=== PATIENT | female | born 1950 | race African-American/Black ===

== ENCOUNTER 2025-03-06 10:27 | Outpatient (CLI) | payer MEDICARE, SELFPAY ==
--- NOTE | ~2025-03-06 | PE_ITS ---
EXAMINATION: PET skull to mid thigh DATE: 03/06/2025 12:37 INDICATION: Solitary pulmonary nodule TECHNIQUE: Blood glucose level was 117 mg/dL. 10.85 mCi of 18-fluorodeoxyglucose (18-FDG) was adminis tered i.v. Low dose computed tomography (CT) images were acquired from the base of the brain to the p roximal thighs for attenuation correction and anatomic localization. Positron emission tomography (PE T) images were acquired in the same distribution beginning 54 minutes after injection. Images includi ng fused PET/CT images were reconstructed in axial, coronal, and sagittal planes. Automated exposure control technique was employed. The dose-length product was 897.16mGy-cm. COMPARISON: PET/CT dated 02/24/2016 FINDINGS: Head/neck: There is symmetric increased activity in the oral cavity, palatine tonsils, laryngeal muscles and ocu lar muscles without CT correlate, likely physiologic. 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 No pathologically enlarged cervical lymphadenop athy or suspicious foci of increased FDG uptake in the visualized head or neck. Chest: Mild emphysema. No evident FDG uptake associated with a 7 mm nodule at the lateral basilar segment of the right lower lobe which was present at the time of the prior study at which time it measured appr oximately 6 mm. Both the absence of FDG uptake and the lack of significant change director nearly 10 year s would be most consistent with a benign noncalcified granuloma. This along with the minimal 2 mm denia cified nodule at the inferior left lower lobe along with calcified mediastinal lymph nodes consistent with old granulomatous disease. No other suspicious pulmonary nodules, pneumonia, pulmonary edema or pleural effusion. Heart size normal. Atherosclerotic coronary artery calcific lesion. No pericardial effusion. Thoracic aorta is normal in caliber. There is additional synovial uptake at the bilateral glenohumeral joints. There is mild likely physiologic muscular uptake extending craniocaudally along the lower thoracic right paraspinal musculature and along some of the posterior lower thoracic interc ostal muscles without radiologic correlate. Severe lower thoracic spondylosis. Abdomen/pelvis/proximal thighs: Physiologic renal accumulation and excretion of FDG activity in the kidneys, bladder and along portio ns of ureters. Interval increase in size of a now 1.2 cm macroscopic fat attenuation angiomyolipomas at the lower pole of the left kidney. Normal degree and heterogenous pattern of increased uptake thro ughout the liver without radiologic correlate or dominant FDG avid lesion. The gallbladder, pancreas and spleen are normal. There are several bilateral adrenal nodules with mild associated FDG activity, 2 on the right including the largest which measures 1.9 cm with maximal SUV of 3.5 and low density d iagnostic of an adenoma and 4 nodules in the left adrenal gland, the largest measuring 1.6 cm with ma ximal SUV of 4.0. Aside from the largest right adrenal nodule, the remainder remain indeterminate by CT density but which are without significant interval change since the prior study from [address] consistent with adenomas. Mild uptake scattered throughout the bowels without radiologic correlate , also likely physiologic. There is severe lower lumbar spondylosis with increased likely synovial FD G uptake associated with severe facet osteoarthritis on the right at L4-L5. No other abnormal foci of increased FDG uptake or pathologically enlarged lymphadenopathy in the abdomen, pelvis or proximal t highs. Musculoskeletal: Additional likely physiologic muscular activity at the bilateral hands. No interval change in a likel y benign sclerotic lesion at the left side of the T12 vertebral body which is without abnormal FDG up take, most likely bone island. No other suspicious lytic, blastic or FDG avid bone lesions. IMPRESSION: 1. No significant change in size and no evident FDG uptake associated with a 7 mm right lower lobe no dule most consistent with a benign noncalcified granuloma. 2. Multiple bilateral mildly FDG avid adrenal nodules, the largest on the right with attenuation diag nostic of an adenoma and remainder without significant interval change since the prior study from 9 y ears prior also most consistent with adenomas. 3. 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 Reviewed, dictated and finalized at location A. IMPRESSION: 1. No significant change in size and no evident FDG uptake associated with a 7 mm right lower lobe nodule most consistent with a benign noncalcified granuloma . 2. Multiple bilateral mildly FDG avid adrenal nodules, the largest on the right with attenuation diagnostic of an adenoma and remainder without significant in terval change since the prior study from 9 years prior also most consistent wit h adenomas. 3. 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
--- OUTSIDE RECORDS SUMMARY | 2025-03-06 10:32 | XMS_ITS | Referral Summary ---
Author Organization [facility] Physician Office Building [address] [place] [id number] Care Team Providers Care Perinatal Coordinator Name Role Phone Rommel Sunshine MD Primary Care Provider Encounters Date Type Department Care Team Description 02/17/2025 Orders Only [facility] Diabetes and Endocrinology [address] [place] [phone] Shane Givens MD 02/12/2025 Telephone [facility] Medical [facility] Diabetes and Endocrinology [address] [place] [phone] Chloe Juan, MEDICAL AIDES TEACHER Med Management 01/14/2025 Orders Only [facility] Diabetes and Endocrinology [address] [place] [phone] Shane Givens MD 01/07/2025 Telephone [facility] Specialists [address] [phone] Chloe Juan, MEDICAL AIDES TEACHER Med Management 12/06/2024 Results Follow-Up [facility] Medical [facility] Diabetes and Endocrinology [address] [place] [phone] Chloe Juan, MEDICAL AIDES TEACHER Albumin Creatinine Ratio, Urine from Last 3 Months Allergies Active Allergy Reactions Criticality Noted Date Comments Azithromycin Unknown High 02/19/2014 Medications albuterol HFA (PROVENTIL HFA,VENTOLIN HFA,PROAIR HFA) 90 mcg/actuation inhaler INHALE 1 PUFF BY MOUTH EVERY 4 HOURS NEEDED 3 Active amLODIPine (NORVASC) 10 mg tablet Take 1 tablet (10 mg total) by mouth daily 3 Active cloNIDine (CATAPRES) 0.1 mg tablet Take 1 tablet (0.1 mg total) by mouth nightly 3 Active Banophen 25 mg capsule TAKE 1 CAPSULE BY MOUTH AT BEDTIME NEEDED 4 Active losartan (COZAAR) 100 mg tablet Take 1 tablet (100 mg total) by mouth daily 3 Active meloxicam (MOBIC) 15 mg tablet Take 1 tablet (15 mg total) by mouth daily as needed 4 Active mometasone (ELOCON) 0.1 % cream APPLY THIN LAYER TOPICALLY TO THE AFFECTED AREA EVERY DAY [address] (PROTONIX) 40 mg EC tablet Take 1 tablet (40 mg total) by mouth daily 3 Active potassium chloride ER 20 mEq CR tablet Take by mouth daily 4 Active simvastatin (ZOCOR) 20 mg tablet Take 1 tablet (20 mg total) by mouth daily 4 Active fluticasone propionate (FLONASE) 50 mcg/actuation nasal spray Administer into each nostril daily Active aspirin 81 mg enteric coated tablet TAKE 1 TABLET BY MOUTH EVERY DAY DIRECTED FOR 30 DAYS FOR CV PROTECTION 4 Active ergocalciferol (VITAMIN D) 50,000 unit capsule TAKE 1 CAPSULE BY MOUTH WEEKLY 4 Active dulaglutide (TRULICITY) 1.5 mg/0.5 mL pen injectorIndicat ions:Type 2 diabetes mellitus with hyperglycemia, without long-term current use of insulin (HCC) Inject 0.5 mL (1.5 mg total) under the skin once a week 6 mL 3 5 Active Additional Information Patient not taking.Reported on 12/04/2024 OneTouch Ultra Test strip 2 (two) times a day 5 Active celecoxib (CeleBREX) 200 mg capsule Take by mouth daily 5 Active chlorthalidone (HYGROTON) 25 mg tablet Take 1 tablet (25 mg total) by mouth daily Active empagliflozin (JARDIANCE) 10 mg tablet Jardiance 10 mg tablet Active famotidine (PEPCID) 20 mg tablet famotidine 20 mg tablet 1 Active ipratropium (ATROVENT) 42 mcg (0.06 %) nasal spray Administer 2 sprays into each nostril 2 (two) times a day 5 Active LORazepam (ATIVAN) 1 mg tablet lorazepam 1 mg tablet TAKE 1 TABLET BY MOUTH 1 TO 2 HOURS PRIOR TO MRI Active omeprazole (PriLOSEC) 40 mg capsule omeprazole 40 mg capsule,delayed release Active metFORMIN (GLUCOPHAGE) 1,000 mg tabletIndicatio ns:Type 2 diabetes mellitus with hyperglycemia, without long-term current use of insulin (HCC) Take 1 tablet by mouth twice a day with meals 60 tablet 11 5 Active glimepiride (AMARYL) 2 mg tabletIndicatio ns:Type 2 diabetes mellitus with hyperglycemia, without long-term current use of insulin (HCC) TAKE 1 TABLET(2 MG) BY MOUTH TWICE DAILY 60 tablet 3 5 Active Active Problems Problem Noted Date Diagnosed Date Hyperlipidemia associated with type 2 diabetes eugenio arias 07/17/2024 Assessment & Plan (12/04/2024 11:51 AM CDT): Chronic problem. At goal on current Simvastatin 20mg. Last lipid panel: 05/23/24 LDL=58, TG=72. Assessment & Plan (07/24/2024 12:57 PM DRY PAN FEEDER): Chronic problem. On statin therapy, no changes. Type 2 diabetes mellitus wit h hyperglycemia, without long-term current use of insulin 09/20/2023 Assessment & Plan (12/04/2024 12:10 PM CDT): Chronic problem. A1c greatly worsened as she was having difficulty getting medications d/t cost/insurance. A1c sofia from 7.3% 05/23/24 to now 9.2%. Has been missing doses d/t cost/insurance. Has not had trulicity 07/2024. Has been taking Glimepiride 2mg BID since she's been out of Trulicity. Aware that she is to restart Trulicity once she gets it. May be able to drop the Glimepiride pending blood sugar levels. Current medications: Metformin 1000 mg twice daily with meals -often only takes once a day due to fear of hypoglycemia Glimepiride 2 mg twice daily with meals Trulicity 1.5 mg weekly UTD on DM eye exam (12/08/23 no DMR [facility]). Will update MA/Cr. Does not mychart. Verified phone #/address to contact re: results. Discussed with Niesha Wittond: Strive for regular exercise (30min most days) and diet (get at least 4-5 servings of fruit and veggies daily, avoid processed foods, increase lean protein intake and decrease carb portions as well as fruit juices, regular soda & desserts). Watch carbs and simple sugars. Check the blood sugar: 2-3x/week. Check the feet daily for skin breakdown and infection. Assessment & Plan (07/24/2024 12:58 PM DRY PAN FEEDER): Chronic problem, not at goal with hypoglycemia. This is coming from glimepiride, she eats very light in the day and gets lows in afternoon. Recommend for 2 weeks she only take Trulicity and metformin twice daily. If sugars are reasonable she can stay off glipizide. If aC readings rising >150, then add back 1/2 tab glimepiride with her main meal. She had yeast infections with SGLT2i and does not want to increase Trulicity at this time. Let us know if any issues. Assessment & Plan (09/20/2023 1:21 PM DRY PAN FEEDER): Hba1c was Lab Results Component Value Date HGBA1C 6.6 09/20/2023 today, indicating adequate DM control with risk of hypoglycemia Goal Hba1c under 7 and blood glucose level in the 120-160 range was explained Low carb diet and daily aerobic and /or resistant exercise were advised Prevention and treatment of hyypoglcyemia were discussed with the patient Blood glucose monitoring : 1 or twice a day Adjustment to medications: Continue Trulicity 1.5 mg weekly Metformin a 1000 mg twice a day with meals Glimepiride 2 mg daily Hypertension associated with diabetes 09/20/2023 Assessment & Plan (12/04/2024 11:51 AM CDT): Chronic problem. Controlled on current losartan 100mg daily, clonidine 0.1mg nightly, amlodipine 10mg daily Assessment & Plan (07/24/2024 12:57 PM DRY PAN FEEDER): Chronic problem, Controlled on losartan, amlodipine, clonidine. No changes. Assessment & Plan (09/20/2023 1:22 PM DRY PAN FEEDER): Chronic well-controlled Continue losartan Update GFR and microalbumin Social History Tobacco Use Types Packs/Day Years Used Date Smoking Tobacco: Former Cigarettes Comments Unknown Sex and Gender Information Value Date Recorded Sex Assigned at Not on file Legal Sex Female 4:27 PM CDT Gender Identity Not on file Sexual Orientation Not on file Last Filed Vital Signs Vital Sign Reading Time Taken Comments Blood Pressure 110/76 12/04/2024 11:35 AM CDT Pulse 90 12/04/2024 11:35 AM CDT Temperature - - Respiratory Rate 16 12/04/2024 11:35 AM CDT Oxygen Saturation - - Inhaled Oxygen Concentration - - Weight 71.2 kg (157 lb) 12/04/2024 11:35 AM CDT Height 156.2 cm (5' 1.5) 12/04/2024 11:35 AM CD T Body Mass Index 29.19 12/04/2024 11:35 AM CDT Plan of Treatment Not on file Procedures Procedure Name Priority Date/Time Associated Diagnosis Comments DIABETES EYE EXAM Routine 02/07/2025 9:43 AM CDT DIABETES EYE EXAM Routine 12/07/2024 8:53 AM CDT ALBUMIN CREATININE RATIO, URINE Routine 12/04/2024 12:18 PM CDT Type 2 diabetes mellitus with hyperglycemia, without long-term current use of insulin (HCC) POCT HEMOGLOBIN A1C Routine 12/04/2024 1 1:39 AM CDT Type 2 diabetes mellitus with hyperglycemia, without long-term current use of insulin (HCC) LIPID PANEL Routine 05/23/2024 11:10 AM CDT from Last 3 Months or Most Recently Relevant to Health Maintenance Results * DIABETES EYE EXAM (02/07/2025 9:43 AM CDT) us Historical Provider HEALTH MAINTENANCE Final Result * HM DIABETES EYE EXAM (12/07/2024 8:53 AM CDT) Result [facility] Historical Provider HEALTH [facility] Edited Result - Final * Albumin Creatinine Ratio, Urine (12/04/2024 12:18 PM CDT) Albumin Ur <12.0 mg/L Comment: Interpretive Data No reference range established. Current interpretive data was last revised 2018. Creatinine Ur 27.9 mg/dL [facility] Comment: Interpretive Data No reference range established. Current interpretive data was last revised 2018. Albumin Creatinine Ratio, Ur See Comment 1 - 29 [facility] Comment:Unable to calculate Urine 12/04/2024 12:1 8 PM CDT 12/04/2024 8:50 PM CDT Result [facility] Chloe Juan NP LAB URINE ORDERABLES Sujey l Result [facility]RA[facility] [id number] [address] Department of Laboratories [place] [phone] * (ABNORMAL) POCT hemoglobin A1c (12/04/2024 11:39 AM CDT) Pathologist [facility] Hemoglobin A1C, POC 9.2 4.0 - 5.6 % Blood 12/04/2024 11:3 9 AM CDT Result [facility] Chloe Juan NP POINT OF CARE TEST ORDERA BLES Final Result * Lipid panel (05/23/2024 11:10 AM CDT) SCRIBED Cholesterol, Total 120 100 - 199 [facility] SCRIBED HDL 47 >39 - NA [facility] SCRIBED LDL 58 0 - 99 [facility] SCRIBED Triglycerides 72 0 - 149 [facility] Blood 05/23/2024 11:1 0 AM CDT us Historical Provider LAB BLOOD ORDERABLES Edit ed Result - Final [facility] from Last 3 Months or Most Recently Relevant to Health Maintenance Insurance MEDICARE [facility] Care Teams Perinatal Coordinator Relationship Specialty Start Date End Date Rommel Sunshine MD [address] [place] [id number] PCP - General Internal Medicine 06/13/23
--- OUTSIDE RECORDS SUMMARY | 2025-03-06 10:32 | XMS_ITS | Data Portability ---
Author Organization [facility] Address [address] [place] [address] Care Team Providers Care Resistance Welder Name Role Phone PENG POWELL Orthopedic Surgeon SHERITA JOHNSON Baking Factory Worker ERASMO PIERRE Tar Kettle Runner AJAY HI Picker And Packer ROMMEL BAPTISTE Primary Care Provider DOTTIE BUSTAMANTE Head Loft Worker Assessment Encounter Date Assessment Date Assessment LastModified by Organization Details LastModified Time 07/31/2024 07/31/2024 The etiology of her discomfort could be related to her sinus issues oajao Not available 07/31/2024 13:13:55 Plan of Treatment Reminders Order Date Submit Date Provider Last Modified By Organization Details Last Modified Time Details Appointments ANY 15 2024 02:00P M Rommel Baptiste MD Not available Not available Not available Lab AST/SGO T (aspart ate aminotr ansfera se), serum or plasma 2024 025 BRAIN [facility], [facility] [facility], [address], [place], [address], 02/05/2025 07:13:28 ALT (alanin e aminotr ansfera se), serum or plasma 2024 025 BRAIN [facility], [address], [place], [address], 02/05/2025 07:13:29 basic metabol ic 1998 panel, serum or plasma 2024 025 BRAIN [facility], [address], [address], [place], [address], 01/14/2025 11:12:24 hemoglo bin + hematoc rit, blood 2024 025 BRAIN [facility], [address], [address], [place], [address], 01/14/2025 11:12:26 HbA1c (hemogl obin A1c), blood 2024 025 BRAIN [facility], [address], [address], [place], [address], 01/14/2025 11:12:25 lipid panel, serum 2024 025 BRAIN [facility], [address], [address], [place], [address], 01/14/2025 11:12:23 albumin /creati nine, mass ratio, urine 2024 025 BRAIN [facility], [address], [place], [address], 01/14/2025 11:12:22 TSH, ultra-s ensitiv e, serum 2023 024 BRAIN [facility], [address], [place], [address], 06/18/2024 13:14:37 vitamin B12, serum 2023 024 BRAIN [facility], [address], [address], [place], [address], 06/18/2024 13:14:36 hemoglo bin + hematoc rit, blood 2023 024 ZIRCONIA [facility], [address] [facility], [address], [place], [address], 06/18/2024 13:14:38 vaginal pathoge ns panel, KAYLENE+pro be, vaginal fluid 2023 024 ZIRCONIA [facility], [address] [facility], [address], [place], [address], 02/21/2024 08:24:11 urinaly sis, dipstic k 2023 024 [email or web address] In-Office Order, Internal Use Only DO Not Attach Compendium DO Not Attach Compendium, Do Not Delete/merge, [id number] 02/19/2024 16:37:34 culture , urine 2023 [facility]24 [facility], [address] [place] [address], [address], [place], [address], 03/27/2024 15:37:24 Referral gastroe nterolo gist referra l 2024 025 hussein Hendricks MD, [address], [place], [address], 02/19/2025 14:01:07 podiatr ist referra l 2024 025 dmitri Cruz DPM, [address], [address], [place], [address], 02/26/2025 09:17:41 diabeti c ophthal mology referra l 2024 025 BRAIN [facility], [address], [place], [address], 02/10/2025 09:24:13 orthope dic surgeon referra l - OA of the knee 2023 BRAIN Lomeli MD, [address] [facility], [place], [address], 07/15/2024 15:23:15 Procedures None recorde d. Surgeries None recorde d. Imaging CT, adrenal , w/ wo contras t - Follow up adrenal nodules 2024 [facility] ([facility]), [address] [place], [address], 02/04/2025 16:04:38 US, abdomen , complet e - Pain RUQ 2024 [facility] ([facility]), [address] [place], [address], 01/20/2025 22:48:01 Medication Orders triamci nolone acetoni de 0.1 % topical cream 2023 [id number], [address], [place], [place], [id number], 06/17/2024 12:07:00 aspirin 81 mg tablet, delayed release 2023 024 [facility] #[id number], [address], [place], [place], [id number], 06/17/2024 12:02:35 Replens vaginal gel 2023 024 [facility] #[id number], [address], [place], [place], [id number], 02/19/2024 16:02:13 Patient TargetsNo targets recorded. Patient Instructions Encounter Date Encounter Id Patient Instructions Last Modified By Organization Details Last Modified Time 02/19/2024 [id number] On the date of this encounter, I was immediately available to assist the resident/fellow in the care of the patient, and have reviewed and agree with the resident s findings and plan of care. ~MD Brenden [email or web address] Not available 02/28/2024 12:27:37 06/17/2024 [id number] influenza (flu) vaccine: care instructions oajao Not available 06/17/2024 12:07:28 knee arthritis: care instructions oajao Not available 06/17/2024 12:01:46 A healthy lifestyle: care instructions oajao Not available 06/17/2024 12:02:35 fatigue: care instructions oajao Not available 06/17/2024 12:01:47 body mass index: care instructions oajao Not available 06/17/2024 12:02:26 learning about healthy weight oajao Not available 06/17/2024 12:02:26 Labs Start ASA f or CV protection Most recent knee xray(s) from [facility] Follow up in 4 weeks oajao Not available 06/17/2024 12:08:20 07/31/2024 [id number] anorexia: care instructions oajao Not available 07/31/2024 13:08:26 headache: care instructions oajao Not available 07/31/2024 13:08:14 Please call for a copy of the CT scan of the sinuses from [facility] Follow up in 2 months oajao Not available 07/31/2024 13:14:23 01/13/2025 [id number] Stop Pantoprazol e Caution with Benadryl [facility] Labs ER with severe abdominal pain Follow up in 3 weeks with all your medications or an accurate list. oajao Not available 01/13/2025 12:50:10 02/04/2025 [id number] Labs Weight loss/GI CT scan of the chest as ordered CT adrenals in 6 months Pulmonology follow up Ophthalmology as referred (Scheduled) Follow up in 6 months and PRN oajao Not available 02/04/2025 16:05:00 Reason for Referral Orthopedic Surgeon Referral for Osteoarthritis of knee Follow up on OA of the knee OA of the knee Referring Physician: Rommel Baptiste, Internal Medicine, Encounter Date: 06/17/2024 Diabetic Ophthalmology Refer ral for Uncontrolled type 2 diabetes mellitus HBA1C 7.3% Referring Physician: Rommel Baptiste, Internal Medicine, Encounter Date: 01/13/2025 Gasket Supervisor Referral for Unco ntrolled type 2 diabetes mellitus Referring Physician: Rommel Baptiste, Internal Medicine, Encounter Date: 02/04/2025 Tar Kettle Runner Referral for Steatotic liver disease Fatty liver Referring Physician: Rommel Baptiste, Internal Medicine, Encounter Date: 02/04/2025 Results Created Date Observation Date Name Description Value Unit Range Abnormal Flag Note LastModifiedBy Organization Detail LastModifiedTime 02/19/2002/21/2024 NUSWA B VAGIN ITIS PLUS (VG+) atopobium vaginae LOW - 0 score Not Available [facility] ([facility]) [address] [place], [address], 02/21/2024 08:24:11 02/19/20 24 02/21/2024 NUSWA B VAGIN ITIS PLUS (VG+) bvab 2 LOW - 0 score Not Available [facility] ([facility]) [address] [place], [address], 02/21/2024 08:24:11 02/19/2002/21/2024 NUSWA B VAGIN ITIS PLUS (VG+) megasphaera 1 LOW - 0 score Calcu late total score by edilma bermudez the 3 indiv idual bacte rial vagin osis (BV) marke r score s toget her. Total score is inter prete d as follo ws: Total score 0-1: Indic ates the absen ce of BV. Total score 2: Indet ermin ate for BV. Addit ional clini denia data shoul d be evalu ated to estab rodrigo a diagn osis. Total score 3-6: Indic ates the prese nce of BV. Not Available [facility] ([facility]) [address] [place], [address], 02/21/2024 08:24:11 02/19/20 24 02/21/2024 NUSWA B VAGIN ITIS PLUS (VG+) reilly albicans, KAYLENE NEGATI VE negati ve Not Available [facility] ([facility]) [address] [facility], [place], [address], 02/21/2024 08:24:11 02/19/20 24 02/21/2024 NUA B VAGIN ITIS PLUS (VG+) reilly glabrata, KAYLENE NEGATI VE negati ve Not Available [facility] ([facility]) [address] [facility], [place], [address], 02/21/2024 08:24:11 02/19/20 24 02/21/2024 NUA B VAGIN ITIS PLUS (VG+) trich vag by KAYLENE NEGATI VE negati ve Not Available [facility] ([facility]) [address] [facility], [place], [address], 02/21/2024 08:24:11 02/19/20 24 02/21/2024 NUA B VAGIN ITIS PLUS (VG+) chlamydia trachomatis, KAYLENE NEGATI VE negati ve Not Available [facility] ([facility]) [address] [facility], [place], [address], 02/21/2024 08:24:11 02/19/20 24 02/21/2024 NUA B VAGIN ITIS PLUS (VG+) neisseria gonorrhoeae, KAYLENE NEGATI VE negati ve Not Available [facility] ([facility]) [address] [facility], [place], [address], 02/21/2024 08:24:11 02/19/20 24 02/19/2024 urina lysis , dipst ick Leukocytes Small Not Available In-Offi ce Order Internal Use Only DO Not Attach Compendium DO Not Attach Compendium, Do Not Delete/merge, [id number] 02/19/2024 15:42:49 02/19/20 24 02/19/2024 urina lysis , dipst ick Nitrite negati ve Not Available In-Office Order Internal Use Only DO Not Attach Compendium DO Not Attach Compendium, Do Not Delete/merge, 02/19/2024 15:42:49 02/19/20 24 02/19/2024 urina lysis , dipst ick Urobilinogen .2 Not Available In-Of fice Order Internal Use Only DO Not Attach Compendium DO Not Attach Compendium, Do Not Delete/merge, 02/19/2024 15:42:49 02/19/20 24 02/19/2024 urina lysis , dipst ick Protein Negati ve Not Available In-Office Order Internal Use Only DO Not Attach Compendium DO Not Attach Compendium, Do Not Delete/merge, 02/19/2024 15:42:49 02/19/20 24 02/19/2024 urina lysis , dipst ick pH 7.5 Not Available In-Office Order Internal Use Only DO Not Attach Compendium DO Not Attach Compendium, Do Not Delete/merge, 02/19/2024 15:42:49 02/19/20 24 02/19/2024 urina lysis , dipst ick Blood Negati ve Not Available In-Office Order Internal Use Only DO Not Attach Compendium DO Not Attach Compendium, Do Not Delete/merge, 02/19/2024 15:42:49 02/19/20 24 02/19/2024 urina lysis , dipst ick Specific [place] 1.015 Not Available In-Off ice Order Internal Use Only DO Not Attach Compendium DO Not Attach Compendium, Do Not Delete/merge, 02/19/2024 15:42:49 02/19/20 24 02/19/2024 urina lysis , dipst ick Ketone Negati ve Not Available In-Office Order Internal Use Only DO Not Attach Compendium DO Not Attach Compendium, Do Not Delete/merge, 02/19/2024 15:42:49 02/19/20 24 02/19/2024 urina lysis , dipst ick Bilirubin Negati ve Not Available In-Office Order Internal Use Only DO Not Attach Compendium DO Not Attach Compendium, Do Not Delete/merge, 02/19/2024 15:42:49 02/19/20 24 02/19/2024 urina lysis , dipst ick Glucose Negati ve Not Available In-Office Order Internal Use Only DO Not Attach Compendium DO Not Attach Compendium, Do Not Delete/merge, [id number] 02/19/2024 15:42:49 05/23/2005/24/2024 LIPID PANEL cholesterol, total 120 mg/dL 100-19 9 Not Available [facility] ([facility]) [address] [place], [address], 05/24/2024 09:19:01 05/23/2005/24/2024 LIPID PANEL triglyceride s 72 mg/dL 0-149 Not Available [facility] ([facility]) [address] [place], [address], 05/24/2024 09:19:01 05/23/2005/24/2024 LIPID PANEL HDL cholesterol 47 mg/dL >39 Not Available [facility] ([facility]) [address] [place], [address], 05/24/2024 09:19:01 05/23/2005/24/2024 LIPID PANEL VLDL cholesterol denia 15 mg/dL 5-40 Not Available [facility] ([facility]) [address] [place], [address], 05/24/2024 09:19:01 05/23/2005/24/2024 LIPID PANEL LDL chol calc ([facility]) 58 mg/dL 0-99 Not Available [facility] ([facility]) [address] [place], [address], 05/24/2024 09:19:01 05/23/2005/24/2024 BASIC METAB OLIC PANEL (7) glucose 161 mg/dL 70-99 above high normal Not Available [facility] ([facility]) [address] [place], [address], 05/24/2024 09:19:02 05/23/2005/24/2024 BASIC METAB OLIC PANEL (7) BUN 7 mg/dL 8-27 below low normal Not Available [facility] ([facility]) [address] [place] [place], [address], 05/24/2024 09:19:02 05/23/2005/24/2024 BASIC METAB OLIC PANEL (7) creatinine 0.82 mg/dL 0.57-1 .00 Not Available [facility] ([facility]) [address] [facility] [place], [address], 05/24/2024 09:19:02 05/23/2005/24/2024 BASIC METAB OLIC PANEL (7) eGFR 76 mL/mi n/1.7 3 >59 Not Available [facility] ([facility]) [address] [place] [place], [address], 05/24/2024 09:19:02 05/23/2005/24/2024 BASIC METAB OLIC PANEL (7) BUN/creatini ne ratio 9 12-28 below low normal Not Available [facility] ([facility]) [address] [place] [place], [address], 05/24/2024 09:19:02 05/23/2005/24/2024 BASIC METAB OLIC PANEL (7) sodium 133 mmol/ L 134-14 4 below low normal Not Available [facility] ([facility]) [address] [place] [place], [address], 05/24/2024 09:19:02 05/23/2005/24/2024 BASIC METAB OLIC PANEL (7) potassium 3.9 mmol/ L 3.5-5. 2 Not Available [facility] ([facility]) [address] [place] [place], [address], 05/24/2024 09:19:02 05/23/2005/24/2024 BASIC METAB OLIC PANEL (7) chloride 98 mmol/ L 96-106 Not Available [facility] ([facility]) [address] [facility], [place], [address], 05/24/2024 09:19:02 05/23/2005/24/2024 BASIC METAB OLIC PANEL (7) carbon dioxide, total 20 mmol/ L 20-29 Not Available [facility] ([facility]) [address] [facility], [place], [address], 05/24/2024 09:19:02 05/23/2005/24/2024 HEMOG LOBIN A1C hemoglobin A1C 7.3 % 4.8-5. 6 above high normal Predi abete s: 5.7 - 6.4 Diabe raman: >6.4 Glyce irma contr ol for adult s with diabe raman: <7.0 Not Available [facility] ([facility]) [address] [facility], [place], [address], 05/24/2024 09:19:04 05/23/2005/24/2024 CBC, PLATE LET, NO DIFFE RENTI AL WBC 4.2 x10e3 /uL 3.4-10 .8 Not Available [facility] ([facility]) [address] [facility], [place], [address], 05/24/2024 09:19:05 05/23/2005/24/2024 CBC, PLATE LET, NO DIFFE RENTI AL RBC 5.51 x10e6 /uL 3.77-5 .28 above high normal Not Available [facility] ([facility]) [address] [facility], [place], [address], 05/24/2024 09:19:05 05/23/2005/24/2024 CBC, PLATE LET, NO DIFFE RENTI AL hemoglobin 12.8 g/dL 11.1-1 5.9 Not Available [facility] ([facility]) [address] [place], [address], 05/24/2024 09:19:05 05/23/2005/24/2024 CBC, PLATE LET, NO DIFFE RENTI AL hematocrit 41.8 % 34.0-4 6.6 Not Available [facility] ([facility]) [address] [facility], [place], [address], 05/24/2024 09:19:05 05/23/2005/24/2024 CBC, PLATE LET, NO DIFFE RENTI AL MCV 76 fL 79-97 below low normal Not Available [facility] ([facility]) [address] [facility], [place], [address], 05/24/2024 09:19:05 05/23/2005/24/2024 CBC, PLATE LET, NO DIFFE RENTI AL MCH 23.2 pg 26.6-3 3.0 below low normal Not Available [facility] ([facility]) [address] [facility], [place], [address], 05/24/2024 09:19:05 05/23/2005/24/2024 CBC, PLATE LET, NO DIFFE RENTI AL MCHC 30.6 g/dL 31.5-3 5.7 below low normal Not Available [facility] ([facility]) [address] [facility], [place], [address], 05/24/2024 09:19:05 05/23/2005/24/2024 CBC, PLATE LET, NO DIFFE RENTI AL RDW 14.9 % 11.7-1 5.4 Not Available [facility] ([facility]) [address] [facility], [place], [address], 05/24/2024 09:19:05 05/23/2005/24/2024 CBC, PLATE LET, NO DIFFE RENTI AL platelets 478 x10e3 /uL 150-45 0 above high normal Not Available [facility] ([facility]) [address] [facility], [place], [address], 05/24/2024 09:19:05 06/17/2006/18/2024 VITAM IN B12 vitamin B12 874 pg/mL 232-12 45 Not Available [facility] ([facility]) [address] [facility], [place], [address], 06/18/2024 13:14:36 06/17/2006/18/2024 TSH TSH 3.350 uIU/m L 0.450- 4.500 Not Available [facility] ([facility]) [address] [facility], [place], [address], 06/18/2024 13:14:37 06/17/2006/18/2024 HGB+H CT hemoglobin 12.6 g/dL 11.1-1 5.9 Not Available [facility] ([facility]) [address] [facility], [place], [address], 06/18/2024 13:14:38 06/17/2006/18/20[address] H[address] hematocrit 39.2 % 34.0-4 6.6 Not Available [facility] ([facility]) [address] [facility], [place], [address], 06/18/2024 13:14:38 08/06/2008/06/2024 CBC panel - Blood by Autom ated count white blood cells low white blood cells Not Available Not Available 11/19/2024 03:58:16 08/06/2008/06/2024 CBC panel - Blood by Autom ated count red blood cells red blood cells Not Available Not Available 11/19/2024 03:58:16 08/06/2008/06/2024 CBC panel - Blood by Autom ated count hemoglobin low hemog lobin Not Available Not Available 11/19/2024 03:58:16 08/06/2008/06/2024 CBC panel - Blood by Autom ated count hematocrit low hemat ocrit Not Available Not Available 11/19/2024 03:58:16 08/06/2008/06/2024 CBC panel - Blood by Autom ated count mean red cell volume low mean red cell volum e Not Available Not Available 11/19/2024 03:58:16 08/06/20 24 08/06/2024 CBC panel - Blood by Autom ated count mean red cell hemoglobin low mean red cell hemog lobin Not Available Not Available 11/19/2024 03:58:16 08/06/20 24 08/06/2024 CBC panel - Blood by Autom ated count mean RBC HGB concentratio n mean RBC HGB shell ntrat ion Not Available Not Available 11/19/2024 03:58:16 08/06/20 24 08/06/2024 CBC panel - Blood by Autom ated count red cell distribution width red cell distr ibuti on width Not Available Not Available 11/19/2024 03:58:16 08/06/20 24 08/06/2024 CBC panel - Blood by Autom ated count platelets plate lets Not Available Not Available 11/19/2024 03:58:16 08/06/20 24 08/06/2024 CBC panel - Blood by Autom ated count mean platelet volume low mean plate let volum e Not Available Not Available 11/19/2024 03:58:16 08/16/19 25 08/16/2024 Gluco se [Mass /volu me] in Capil venita blood by Gluco meter glucose (point of care) high gluco se (poin t of care) Not Available Not Available 11/19/2024 03:58:16 08/16/1908/16/2024 Gluco se [Mass /volu me] in Capil venita blood by Gluco meter glucose (point of care) high gluco se (poin t of care) Not Available Not Available 11/19/2024 03:58:16 01/14/20 25 01/14/2025 ALBUM IN/CR EATIN INE RATIO ,URIN E creatinine, urine 30.8 mg/dL notest ab. Not Available [facility] ([facility]) [address] [facility], [place], [address], 01/14/2025 11:12:22 01/14/20 25 01/14/2025 ALBUM IN/CR EATIN INE RATIO ,URIN E albumin, urine 6.9 ug/mL notest ab. Not Available [facility] ([facility]) [address] [facility], [place], [address], 01/14/2025 11:12:22 01/14/20 25 01/14/2025 ALBUM IN/CR EATIN INE RATIO ,URIN E alb/creat ratio 22 mg/g_ creat 0-29 Nohemy l: 0 - 29 Moder ately incre ased: 30 - 300 Sever osmani incre ased: >300 Not Available [facility] ([facility]) [address] [place], [address], 01/14/2025 11:12:22 01/14/20 25 01/14/2025 LIPID PANEL cholesterol, total 131 mg/dL 100-19 9 Not Available [facility] ([facility]) [address] [place], [address], 01/14/2025 11:12:23 01/14/20 25 01/14/2025 LIPID PANEL triglyceride s 71 mg/dL 0-149 Not Available [facility] ([facility]) [address] [place], [address], 01/14/2025 11:12:23 01/14/20 25 01/14/2025 LIPID PANEL HDL cholesterol 54 mg/dL >39 Not Available [facility] ([facility]) [address] [place], [address], 01/14/2025 11:12:23 01/14/20 25 01/14/2025 LIPID PANEL VLDL cholesterol denia 14 mg/dL 5-40 Not Available [facility] ([facility]) [address] [place], [address], 01/14/2025 11:12:23 01/14/20 25 01/14/2025 LIPID PANEL LDL chol calc ([facility]) 63 mg/dL 0-99 Not Available [facility] ([facility]) [address] [place], [address], 01/14/2025 11:12:23 01/14/20 25 01/14/2025 BASIC METAB OLIC PANEL (7) glucose 114 mg/dL 70-99 above high normal Not Available [facility] ([facility]) [address] [place], [address], 01/14/2025 11:12:24 01/14/20 25 01/14/2025 BASIC METAB OLIC PANEL (7) BUN 6 mg/dL 8-27 below low normal Not Available [facility] ([facility]) [address] [place], [address], 01/14/2025 11:12:24 01/14/20 25 01/14/2025 BASIC METAB OLIC PANEL (7) creatinine 0.81 mg/dL 0.57-1 .00 Not Available [facility] ([facility]) [address] [place], [address], 01/14/2025 11:12:24 01/14/20 25 01/14/2025 BASIC METAB OLIC PANEL (7) eGFR 77 mL/mi n/1.7 3 >59 Not Available [facility] ([facility]) [address] [place], [address], 01/14/2025 11:12:24 01/14/20 25 01/14/2025 BASIC METAB OLIC PANEL (7) BUN/creatini ne ratio 7 12-28 below low normal Not Available [facility] ([facility]) [address] [place], [address], 01/14/2025 11:12:24 01/14/20 25 01/14/2025 BASIC METAB OLIC PANEL (7) sodium 137 mmol/ L 134-14 4 Not Available [facility] ([facility]) [address] [place], [address], 01/14/2025 11:12:24 01/14/20 25 01/14/2025 BASIC METAB OLIC PANEL (7) potassium 4.0 mmol/ L 3.5-5. 2 Not Available [facility] ([facility]) [address] [place], [address], 01/14/2025 11:12:24 01/14/20 25 01/14/2025 BASIC METAB OLIC PANEL (7) chloride 99 mmol/ L 96-106 Not Available [facility] ([facility]) [address] [place], [address], 01/14/2025 11:12:24 01/14/20 25 01/14/2025 BASIC METAB OLIC PANEL (7) carbon dioxide, total 21 mmol/ L 20-29 Not Available [facility] ([facility]) [address] [place], [address], 01/14/2025 11:12:24 01/14/20 25 01/14/2025 HEMOG LOBIN A1C hemoglobin A1C 7.6 % 4.8-5. 6 above high normal Predi abete s: 5.7 - 6.4 Diabe raman: >6.4 Glyce irma contr ol for adult s with diabe raman: <7.0 Not Available [facility] ([facility]) [address] [place], [address], 01/14/2025 11:12:25 01/14/20 25 01/14/2025 HGB+H CT hemoglobin 12.4 g/dL 11.1-1 5.9 Not Available [facility] ([facility]) [address] [place], [address], 01/14/2025 11:12:26 01/14/20 25 01/14/2025 HGB+H [address] hematocrit 40.2 % 34.0-4 6.6 Not Available [facility] ([facility]) [address] [place], [address], 01/14/2025 11:12:26 02/01/20 25 01/31/2025 Creat inine [Mass /volu me] in Blood creatinine [mass/volume ] in blood 0.8 mg/dL low: 0.6mg/ dLhigh : 1.3mg/ dL normal Not Available Not Available 02/05/2025 11:13:36 02/05/20 25 02/05/2025 AST (SGOT ) AST (SGOT) 27 IU/L 0-40 Not Available [facility] ([facility]) [address] [facility], [place], [address], 02/05/2025 07:13:28 02/05/20 25 02/05/2025 ALT (SGPT ) ALT (SGPT) 27 IU/L 0-32 Not Available [facility] ([facility]) [address] [facility], [place], [address], 02/05/2025 07:13:29 07/18/20 24 07/18/2024 MAMMO , scree tarik, digit al, bilat eral No observ ation record ed. [facility] [address] [place], [address], 07/31/2024 13:04:14 01/21/20 25 01/20/2025 US, abdom en, compl ete No observ ation record ed. [facility] [address] [place], [address], 02/04/2025 15:52:36 02/01/20 25 01/31/2025 CT, abdom en, w/ contr ast No observ ation record ed. [facility] [address] [place], [address], 02/04/2025 15:53:16 Result Notes None recorded. Problems Name Problem SNOMED Code Status Onset Date Resolution Date Notes Provider Name and Address Organization Details Recorded Time Uncontroll ed type 2 diabetes mellitus 675619476 Active Not Available [facility] 4 08:36:06 Knee pain Active Not Available [facility] 4 08:36:06 Acute bronchitis 62762024 Active Not Available [facility] 4 08:36:05 Benign hypertensi on 05018421 Active Not Available [facility] 4 08:36:06 Cervical radiculopa thy 98516306 Active Not Available [facility] 4 08:36:06 Carpal tunnel syndrome 74437776 Active Not Available [facility] 4 08:36:06 Sinusitis 70495504 Active Not Available [facility] 4 08:36:06 Numbness of hand 436412221 Active Not Available [facility] 4 08:36:06 Bacterial vaginosis 022959148 Active Not Available [facility] 4 08:36:06 Verruca plantaris 94870278 Active Not Available [facility] 4 08:36:06 Otalgia 71961545 Active Not Available [facility] 4 08:36:06 Pain of hip region 38160393 Active Not Available [facility] 4 08:36:06 Hypokalemi a 74635647 Active Not Available [facility] 4 08:36:06 Abdominal pain 02799240 Active Not Available [facility] 4 08:36:06 Otitis externa 9769022 Active Not Available [facility] 4 08:36:06 Computed tomography result abnormal 376270906 Active Not Available [facility] 4 08:36:06 Contusion of knee 93707267 Active Not Available [facility] 4 08:36:06 Adrenal mass 821973298 Active Not Available [facility] 4 08:36:06 Injury of knee 834279595 Active Not Available [facility] 4 08:36:06 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 Not Available [facility] 4 08:36:07 Chronic cough 91875605 Active Not Available [facility] 4 08:36:06 Wax in ear canal 350588279 Active Not Available [facility] 4 08:36:06 Spots on skin Active Not Available [facility] 4 08:36:06 Pruritus of vulva 52099753 Active 2016 Not Available [facility] 4 08:36:06 Type 2 diabetes mellitus without complicati on 241760597 Active 2016 Not Available [facility] 4 08:36:06 Solitary nodule of lung 431475854 Active 2016 Not Available [facility] 4 08:36:06 Hallux valgus AND bunion 525396736 Active 2016 Not Available [facility] 4 08:36:06 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 Not Available [facility] 4 08:36:06 Adrenal hyperplasi a 921992972 Active 2017 Not Available [facility] 4 08:36:06 Steatotic liver disease 413905307 Active 2017 Rommel Baptiste MD Attn: [place], [address] , [facility] 5 15:57:45 Visual impairment 128629993 Active 2017 Not Available [facility] 4 08:36:06 Oropharyng eal dysphagia 10401184 Active 2017 Not Available [facility] 4 08:36:06 Tobacco dependence in remission 953444667 Active 2018 Not Available [facility] 4 08:36:06 Spinal stenosis of thoracic region 54315667 Active 2018 Not Available [facility] 4 08:36:06 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 62865995 Active 2018 Not Available [facility] 4 08:36:06 Umbilical hernia 008838148 Active 2018 Not Available [facility] 4 08:36:06 Diabetes mellitus 51406442 Active 2018 Not Available [facility] 4 08:36:07 Gastroesop hageal reflux disease 016939589 Active 2018 Not Available [facility] 4 08:36:06 Osteoarthr itis 105901757 Active 2020 Not Available [facility] 4 08:36:06 Chronic insomnia 929378015 Active 2021 Not Available [facility] 4 08:36:06 Body mass index 30+ - obesity 970017690 Active 2021 Not Available [facility] 4 08:36:06 Degenerati on of cervical interverte bral disc 79888147 Active 2021 Not Available [facility] 4 08:36:06 Osteoarthr itis of shoulder region 98066801 Active 2021 Not Available [facility] 4 08:36:06 Chronic cerebral ischemia 671712796 Active 2022 Not Available [facility] 4 08:36:06 Degenerati on of lumbar interverte bral disc 10095776 Active 2022 Not Available [facility] 4 08:36:06 Vaginal irritation 823480500 Active 2023 Dottie Bustamante MD Attn: Accounting ,[address] [place], [address] , [facility] 4 12:27:25 Nodule of lung 461665848 Active 2024 Rommel Baptiste MD Attn: Accounting ,[address] [place], [address] , [place] [facility] 5 16:19:56 Problem Notes None recorded. Procedures Surgical History Date Name Laterality Status Provider Name and Address Organization Details Recorded Time 01/13 Diabetic Foot Exam completed Rommel Baptiste MD Attn: Accounting, [address] [place], [address], [place] [facility] 5 13:46:51 11/25 esophagogastroduodenoscopy completed Rohith Wood MD Attn: Accounting, [address] [place], [address], [place] [facility] 5 14:01:02 11/25 colonoscopy completed Rommel Baptiste MD Attn: Accounting, [address] [place], [address], [place] [facility] 5 14:01:14 11/23 Diabetic Foot Exam completed Rommel Baptiste MD Attn: Accounting, [address] [facility], [place], [address], [place] [facility] 4 18:58:17 05/19 Diabetic Foot Exam completed Rommel Baptiste MD Attn: Accounting, [address] [facility], [place], [address], [place] [facility] 3 16:15:15 05/11 Date of Last Mammogram completed Kristan Cheek [place] [facility] 3 11:17:56 05/02 Vulvar Biopsy completed Deborah Parmar MD Attn: Accounting, [address] [facility], [place], [address], [place] [facility] 7 16:21:41 03/28 Most Recent Mammogram completed Kristan Cheek [place] [facility] 8 15:54:50 04/14 colonoscopy completed Rommel Baptiste MD Attn: Accounting, [address] [place], [address], [place] [facility] 0 15:47:35 08/16 Total hysterectomy completed LUCIUS ANDERSEN Attn: Accounting, [address] [place], [address], [place] [facility] 0 17:40:06 Gastrointestinal Surgery completed Rommel Baptiste MD Attn: Accounting, [address] [place], [address], [place] [facility] 6 15:35:28 Hernia Repair completed Margaret Vergara [place] [facility] 5 15:02:49 Imaging Results None recorded. Procedure Notes None recorded. Medical Equipment None Reported. Allergies Allergen ID Allergen Name Allergen Category Reaction Reaction Severity Criticality Documentation Date Start Date Code Code System Note Provider Name and Address Organization Details Recorded Time 89030 erythromy manish medicatio n rash moderate Not available 09/30/2014 4053 RxNorm November HELEN Vergara null, [place] [facility] 5 15:02:50 60656 Zithromax medicatio n rash moderate Not available 01/20/2015 34177 4 RxNorm Rommel Baptiste MD Attn: Leah bermudez,[address] [facility], [place], [address], [place] [facility] 5 17:07:23 Medications Name Sig Start Date Stop Date Status Note LastModified by Organization Details LastModified Time Prescript ion - Renewal 05/02 completed Not Available Not Available Not Available amlodipin e besylate 5 mg tabs 03/13 completed Not Available Not Available Not Available metformin hydrochlo ride 1000 mg tabs 03/13 completed Not Available Not Available Not Available chlorthal idone 25 mg tabs 03/13 completed Not Available Not Available Not Available glimepiri de 4 mg tabs 03/13 completed Not Available Not Available Not Available fluticaso ne propionat e 50 mcg/act susp 03/13 completed Not Available Not Available Not Available potassium chloride er 20 meq tbcr 03/13 completed Not Available Not Available Not Available tradjenta 5 mg tabs One po daily 11/05 completed Not Available Not Available Not Available pantopraz ole sodium 40 mg tbec 03/13 completed Not Available Not Available Not Available contour strips 05/28 completed Not Available Not Available Not Available losartan potassium 100 mg tabs 03/13 completed Not Available Not Available Not Available simvastat in 20 mg tabs 05/28 completed Not Available Not Available Not Available terconazo le 0.8 % crea 05/28 completed Not Available Not Available Not Available clonidine hcl 0.1 mg tabs 03/13 completed Not Available Not Available Not Available OneTouch Ultra Blue Test Strips BID testing 10/24 completed Not Available Not Available Not Available compounde d medicatio n active Not Available Not Available Not Available celecoxib 200 mg capsule TAKE 1 CAPSULE BY MOUTH EVERY DAY 01/13 completed Not Available Not Available Not Available cyclobenz aprine 10 mg tablet TAKE 1/2 TO 1 TABLET BY MOUTH TWICE DAILY 11/23 completed Not Available Not Available Not Available amoxicill in 500 mg capsule 03/29 completed Not Available Not Available Not Available neomycin- polymyxin -hydrocor t 3.5 mg/mL-10, 000 unit/mL-1 % ear solution INSTILL 4 DROPS INTO BOTH EARS THREE TIMES DAILY FOR 10 DAYS 05/19 completed Not Available Not Available Not Available clonidine HCl 0.1 mg tablet TAKE 1 TABLET BY MOUTH EVERY EVENING active Not Available Not Available No t Available doxycycli ne hyclate 100 mg capsule 04/10 completed Not Available Not Available Not Available cefuroxim e axetil 250 mg tablet 08/15 completed Not Available Not Available Not Available ibuprofen 800 mg tablet TAKE 1 TABLET BY MOUTH EVERY 6 TO 8 HOURS NEEDED 10/24 completed Not Available Not Available Not Available ofloxacin 0.3 % eye drops 01/19 completed Not Available Not Available Not Available fluconazo le 150 mg tablet Take 1 tablet by oral route for 1 day. 06/09 completed Not Available Not Available Not Available benzonata te 200 mg capsule one po TID prn with her cough 01/20 completed Not Available Not Available Not Available hydrocodo ne 5 mg-acetam inophen 325 mg tablet 08/06 completed Not Available Not Available Not Available fluconazo le 200 mg tablet TAKE 1 TABLET BY MOUTH NOW AND 72 HOURS LATER 02/18 completed Not Available Not Available Not Available meloxicam 15 mg tablet TAKE 1 TABLET BY MOUTH EVERY DAY NEEDED active Not Available Not Available No t Available phenazopy ridine 200 mg tablet TAKE 1 TABLET BY MOUTH THREE TIMES DAILY 10/24 completed Not Available Not Available Not Available metronida zole 0.75 % (37.5 mg/5 gram) vaginal gel INSERT 1 APPLICAT ORFUL BY VAGINAL ROUTE EVERY NIGHT AT BEDTIME FOR 5 DAYS 12/15 completed Not Available Not Available Not Available prednison e 20 mg tablet TAKE 1 TABLET BY MOUTH EVERY DAY FOR 5 DAYS 06/17 completed Not Available Not Available Not Available terconazo le 0.8 % vaginal cream Insert 1 applicat orful every day by vaginal route. 05/28 completed Not Available Not Available Not Available penicilli n V potassium 500 mg tablet TAKE 1 TABLET BY MOUTH TWICE DAILY FOR 7 DAYS 04/08 completed Not Available Not Available Not Available metronida zole 500 mg tablet TAKE 1 TABLET BY MOUTH TWICE DAILY 02/18 completed Not Available Not Available Not Available nizatidin e 150 mg capsule One po BID 08/20 completed Not Available Not Available Not Available acetamino phen 300 mg-codein e 30 mg tablet 05/22 completed Not Available Not Available Not Available chlorthal idone 25 mg tablet TAKE 1 TABLET BY MOUTH DAILY 2024 active Not Available Not Available Not Avai lable amlodipin e 5 mg tablet TAKE 1 TABLET BY MOUTH EVERY DAY active Not Available Not Available No t Available ciproflox acin 500 mg tablet 04/05 completed Not Available Not Available Not Available peg-elect rolyte solution 420 gram oral solution 05/16 completed Not Available Not Available Not Available omeprazol e 40 mg capsule,d elayed release Take 1 capsule every day by oral route in the morning for 30 days. 07/05 completed Not Available Not Available Not Available aspirin 81 mg tablet,de layed release Take 1 tablet every day by oral route as directed for 90 days, for CV protecti on. 2024 active Not Available Not Available Not Avai lable tramadol 50 mg tablet TAKE 1 TABLET BY MOUTH EVERY 8 HOURS NEEDED 07/12 completed Not Available Not Available Not Available triamcino lone acetonide 0.1 % topical cream APPLY TOPICALL Y TO THE AFFECTED AREA EVERY DAY FOR 14 DAYS NEEDED FOR ITCHY RASH active Not Available Not Available No t Available amoxicill in 500 mg tablet 05/22 completed Not Available Not Available Not Available glimepiri de 2 mg tablet 1.5 po daily active Not Available Not Available No t Available glimepiri de 1 mg tablet Take 1 tablet every day by oral route with meals for 90 days. 01/25 completed Not Available Not Available Not Available meloxicam 7.5 mg tablet 08/15 completed Not Available Not Available Not Available ofloxacin 0.3 % ear drops INSTILL 4 DROPS TO AFFECTED EAR TWICE DAILY FOR 10 DAYS 11/23 completed Not Available Not Available Not Available potassium chloride 20 mEq oral packet DISSOLVE 1 PACKET IN WATER THREE TIMES DAILY 12/21 completed Not Available Not Available Not Available potassium chloride ER 20 mEq tablet,ex tended release(p art/cryst ) Take 2 TABS PO once a day 02/04 completed Not Available Not Available Not Available famotidin e 20 mg tablet TAKE 1 TABLET BY MOUTH EVERY 12 HOURS FOR 10 DAYS 02/18 completed Not Available Not Available Not Available repaglini de 0.5 mg tablet TAKE 1 TABLET BY MOUTH THREE TIMES DAILY BEFORE MEALS 05/19 completed Not Available Not Available Not Available OneTouch Ultra Test strips TEST TWICE DAILY DIRECTED active Not Available Not Available No t Available phenazopy ridine 100 mg tablet TAKE 1 TABLET BY MOUTH THREE TIMES DAILY 07/12 completed Not Available Not Available Not Available amlodipin e 10 mg tablet One PO daily for HTN 2024 active Not Available Not Available Not Avai lable benzonata te 100 mg capsule TAKE 1 CAPSULE BY MOUTH THREE TIMES DAILY FOR 7 DAYS DIRECTED 07/05 completed Not Available Not Available Not Available hydrocodo ne 7.5 mg-acetam inophen 325 mg tablet TAKE 1 TABLET BY MOUTH EVERY 4 HOURS NEEDED active Not Available Not Available No t Available cephalexi n 500 mg capsule Take 1 capsule every 12 hours by oral route as directed for 3 days. 01/25 completed Not Available Not Available Not Available pantopraz ole 40 mg tablet,de layed release Take 1 tablet every day by oral route as directed for 30 days, for Heartbur n. 01/13 completed I don't want to take it no more, I think it is messing with my kidneys 01/13/2025 Not Available Not Available Not Available simvastat in 20 mg tablet TAKE 1 TABLET BY MOUTH DAILY active Not Available Not Available No t Available diphenhyd ramine 25 mg capsule Take 1 capsule as needed by oral route at bedtime for 30 days, for Insomnia . 2024 active [place] of side effects on 01/13/2025 Not Available Not Available Not Available metformin 1,000 mg tablet TAKE 1 TABLET BY MOUTH TWICE DAILY 02/04 completed I quit Metformi n, Im think Metformi n was affectin g my kidneys Not Available Not Available Not Available nystatin 100,000 unit/gram topical cream APPLY EXTERNAL LY TO THE AFFECTED AREA TWICE DAILY 12/22 completed Not Available Not Available Not Available ranitidin e 150 mg tablet TAKE 1 TABLET BY MOUTH TWICE DAILY 06/14 completed Not Available Not Available Not Available glimepiri de 4 mg tablet TAKE 1 TABLET BY MOUTH TWICE DAILY WITH MEALS 02/18 completed Not Available Not Available Not Available lidocaine 5 % topical patch APPLY 1 PATCH TOPICALL Y DAILY AND LEAVE ON MOST PAINFULA JARET FOR UP TO 12 HOURS 11/23 completed Not Available Not Available Not Available Replens vaginal gel Slab Grinder the applicat or firmly by the thick end. Shake down to ensure that the contents are at the thin end of the applicat or. 2023 active Not Available Not Available Not Avai lable ranitidin e 150 mg capsule Take 1 capsule twice a day by oral route. active Not Available Not Available No t Available ergocalci ferol (vitamin D2) 1,250 mcg (50,000 unit) capsule TAKE 1 CAPSULE BY MOUTH WEEKLY 2024 active Not Available Not Available Not Avai lable lorazepam 1 mg tablet TAKE 1 TABLET BY MOUTH 1 TO 2 HOURS PRIOR TO MRI 11/21 completed Not Available Not Available Not Available levofloxa manish 750 mg tablet Take 1 tablet every day by oral route for 5 days. 05/26 completed Not Available Not Available Not Available methylpre dnisolone 4 mg tablets in a dose pack FOLLOW PACKAGE DIRECTIO NS 11/23 completed Not Available Not Available Not Available albuterol sulfate HFA 90 mcg/actua tion aerosol inhaler INHALE 1 PUFF BY MOUTH EVERY 4 HOURS NEEDED active Not Available Not Available No t Available ipratropi um bromide 42 mcg (0.06 %) nasal spray USE 2 SPRAYS IN EACH NOSTRIL TWICE DAILY active Not Available Not Available No t Available cefdinir 300 mg capsule TAKE 1 CAPSULE BY MOUTH EVERY 12 HOURS FOR 7 DAYS 07/31 completed Not Available Not Available Not Available losartan 100 mg tablet TAKE 1 TABLET BY MOUTH EVERY DAY. Labs as ordered 2024 active Not Available Not Available Not Avai lable fluticaso ne propionat e 50 mcg/actua tion nasal spray,pino pension 2 sprays in each nostril once a day 2024 active Not Available Not Available Not Avai lable doxycycli ne hyclate 100 mg tablet TAKE 1 TABLET BY MOUTH TWICE DAILY 06/17 completed Not Available Not Available Not Available naproxen 500 mg tablet TAKE 1 TABLET BY MOUTH TWICE DAILY. WITH FOOD 07/31 completed Not Available Not Available Not Available mometason e 0.1 % topical cream APPLY THIN LAYER TOPICALL Y TO THE AFFECTED AREA EVERY DAY 02/04 completed Not Available Not Available Not Available metoclopr amide 10 mg tablet TAKE 1 TABLET BY MOUTH 30 MINUTES BEFORE MEALS AND AT BEDTIME 05/19 completed Not Available Not Available Not Available amoxicill in 875 mg-potass ium clavulana te 125 mg tablet Take 1 tablet every 12 hours by oral route for 10 days. 04/08 completed Not Available Not Available Not Available neomycin 3.5 mg/g-poly myxin B 10,000 unit/g-de xameth 0.1 % eye oint 10/28 completed Not Available Not Available Not Available diabetic supplies, [place] . 05/28 completed Not Available Not Available Not Available cyclobenz aprine 5 mg tablet 08/15 completed Not Available Not Available Not Available rosuvasta tin 10 mg tablet Take 1 tablet every other day by oral route as directed for 30 days. 08/20 completed Not Available Not Available Not Available nitrofura ntoin monohydra te/macroc rystals 100 mg capsule TAKE 1 CAPSULE BY MOUTH TWICE DAILY 07/12 completed Not Available Not Available Not Available Lyndsey s Butt Paste 16 % topical ointment APPLY TOPICALL Y NEEDED 12/22 completed Not Available Not Available Not Available Boostrix Tdap 2.5 Lf unit-8 mcg-5 Lf/0.5 mL intramusc ular syringe 01/25 completed Not Available Not Available Not Available GaviLyte- G 236 gram-22.7 4 gram-6.74 gram-5.86 gram oral solution MIX AND DRINK DIRECTED active Not Available Not Available No t Available Tradjenta 5 mg tablet TK 1 T PO QAM 11/05 completed Not Available Not Available Not Available Lyndsey s Butt Paste 40 % topical ointment Apply as needed 05/28 completed Not Available Not Available Not Available Farxiga 10 mg tablet TAKE 1 TABLET BY MOUTH EVERY DAY IN THE MORNING 05/28 completed Not Available Not Available Not Available potassium chloride ER 20 mEq tablet,ex tended release TAKE 2 TABLETS BY MOUTH EVERY DAY DIRECTED active Not Available Not Available No t Available Jardiance 10 mg tablet TAKE 1 TABLET BY MOUTH EVERY DAY 03/29 completed Not Available Not Available Not Available Trulicity 1.5 mg/0.5 mL subcutane ous pen injector ADMINIST ER 1.5 MG UNDER THE SKIN 1 TIME A WEEK active Not Available Not Available No t Available Trulicity 0.75 mg/0.5 mL subcutane ous pen injector 08/20 completed Not Available Not Available Not Available Belsomra 5 mg tablet TAKE 1 TABLET BY MOUTH EVERY DAY AT BEDTIME 01/13 completed Not Available Not Available Not Available OneTouch Ultra Blue Test Strip TID testing (ICD 10 E11.9) 05/28 completed Not Available Not Available Not Available OneTouch Ultra2 Meter USE DIRECTED 05/28 completed Not Available Not Available Not Available OneTouch Delica Plus Lancet 33 gauge USE TWICE DAILY 05/28 completed Not Available Not Available Not Available Fluzone High-Dose Quad 2020-21 (PF) 240 mcg/0.7 mL IM syringe ADM 0.7ML IM UTD 05/28 completed Not Available Not Available Not Available Trulicity 3 mg/0.5 mL subcutane ous pen injector INJECT SUBCUTAN EOUS 3MG ONCE A WEEK 06/17 completed On 3 mg with a plan to start 1.5 mg Not Available Not Available Not Available Vitals Date Recorded Body height Body mass index (BMI) Body weight Heart rate Oxygen saturation Oxygen saturation in Arterial blood by Pulse oximetry Respiratory rate Body temperature Systolic And Diastolic Provider Name and Address Organization Details Last Updated DateTime 5 156.21 cm 29.1 kg/m2 98249.9 2 g 94 /min 98 % 98 % 16 /min 98.1 [degF] 130/74 mm[Hg] Alicia Patterson [place] [facility] 5 12:26:09 Date Recorded Body height Body mass index (BMI) Body weight Oxygen saturation Oxygen saturation in Arterial blood by Pulse oximetry Heart rate Body temperature Respiratory rate Systolic And Diastolic Provider Name and Address Organization Details Last Updated DateTime 5 156.21 cm 29.3 kg/m2 86728.5 2 g 98 % 98 % 81 /min 99 [degF] 18 /min 138/74 mm[Hg] Kristan Cheek MA [facility] 5 15:28:32 Date Recorded Body height Body mass index (BMI) Body weight Systolic And Diastolic Provider Name and Address Organization Details Last Updated DateTime 02/19/2024 156.21 cm 30.7 kg/m2 65752.74 g 128/70 mm[Hg] Kristan Cheek MA [facility] 02/19/2024 15:10:01 Date Recorded Body height Body mass index (BMI) Body weight Respiratory rate Heart rate Oxygen saturation Oxygen saturation in Arterial blood by Pulse oximetry Systolic And Diastolic Provider Name and Address Organization Details Last Updated DateTime 4 156.21 cm 30.5 kg/m2 73110.1 5 g 16 /min 96 /min 100 % 100 % 112/66 mm[Hg] Alicia Patterson MA [facility] 4 11:31:53 Date Recorded Body height Body mass index (BMI) Body weight Heart rate Oxygen saturation Oxygen saturation in Arterial blood by Pulse oximetry Respiratory rate Systolic And Diastolic Provider Name and Address Organization Details Last Updated DateTime 4 156.21 cm 29.9 kg/m2 17314.0 1 g 86 /min 96 % 96 % 18 /min 126/70 mm[Hg] Alicia Patterson MA [facility] 4 12:42:46 Social History Question Answer Notes LastModified by Organizat ion Details LastModified Time Tobacco Smoking Status Former Smoker Alicia Patterson MA [facility] 04/10/2018 15:11:32 Do You Have An Advance Directive? No Information not available 09/30/2014 Is Blood Transfusion Acceptable In An Emergency? No Information not available 04/01/2015 What Is Your Level Of Caffeine Consumption? Moderate Information not available 09/30/2014 How Much Tobacco Do You Chew? None Information not available 09/30/2014 What Type Of Diet Are You Following? REGULAR Information not available 04/01/2015 Education 10 Information no t available 09/30/2014 Are There Any Guns Present In Your Home? No Information not available 09/30/2014 Hard Of Hearing Or Deaf In One Or Both Ears? No Information not available 09/30/2014 Legally Blind In One Or Both Eyes? No Information not available 09/30/2014 Live Alone Or With Others? With Others Information not available 04/01/2015 Marital Status Single Informatio n not available 09/30/2014 What Was The Date Of Your Most Recent Tobacco Screening? 02/04/2025 Information not available 02/04/2025 How Many Children Do You Have? 1 Information not available 04/01/2015 What Is Your Current Pack Years? 30ormorepack years Information not available 11/05/2020 Performs Monthly Self-breast Exam? No Information not available 09/30/2014 Do You Use Protection During Sex? No Information not available 09/29/2016 What Is Your Relationship Status? Single Information not available 04/01/2015 Seat Belts Used Routinely Yes Information not available 09/30/2014 Are You Sexually Active? Yes Information not available 04/01/2015 Smoke Alarm In Home Yes Information not available 09/30/2014 Do You Have Smoke And Carbon Monoxide Detectors In Your Home? Yes Information not available 05/11/2022 At What Age Did You Start Smoking Tobacco? 18 Information not available 09/30/2014 Are You Passively Exposed To Smoke? Yes Information not available 05/11/2022 How Much Tobacco Do You Smoke? No 3 PPW- Trying To Quit; Quit Oct 03 2017 [email or web address] Information not available 09/29/2016 General Stress Level Medium Information not available 09/30/2014 Do You Use Sunscreen Routinely? Yes Information not available 09/30/2014 Has Tobacco Cessation Counseling Been Provided? Yes Information not available 02/19/2024 On What Date Was Tobacco Cessation Counseling Provided? 02/04/2025 [email or web address] Information not available 02/04/2025 How Many Years Have You Smoked Tobacco? 46 Information not available 09/30/2014 Sex: Unknown Functional Status Question Answer Note LastModified by Organizat ion Details LastModified Time Do you use any illicit or recreational drugs? Yes marijuana Information not available 05/11/2022 Do you or have you ever used any other forms of tobacco or nicotine? No Information not available 11/05/2020 What is your level of alcohol consumption? None Information not available 09/30/2014 Do you or have you ever used smokeless tobacco? Never used smokeless tobacco Information not available 08/20/2019 Are you currently employed? No Information not available 04/01/2015 What is your occupation? disability Information not available 09/30/2014 Do you or have you ever used e-cigarettes or vape? Never used electronic cigarettes Information not available 08/20/2019 What is your exercise level? Occasional Information not available 09/30/2014 Mental Status None recorded. Family History Relationship Description Onset Age of this Age Resolved Age Notes LastModified by Organization Details LastModified Time Mother Hypertensive disorder Not available 04/01 13:31:34 Brother Hypertensive disorder Not available 04/01 13:31:34 Medical History Condition Response Coronary Artery Disease N Kidney Cyst N Blood Diseases N Hyperthyroidism N Blood disorders N Blood Transfusion N MRSA N Emphysema N Depression N COPD N Blood Clots N Pneumonia N Premature N Peripheral Arterial Disease N Edema N TIA N Headaches/Migraines N Anxiety Disorder N Obesity N Polyps N Infertility N Acid Reflux (GERD) N Hematuria N Stroke N Neck Injury N Polio N Hospital Admission other than N Neurologic Disorder N Other Sleep Disorders N Rheumatoid Arthritis N Fibromyalgia N Abdominal Aortic Aneurysm Repair N Kidney Disease N Heart Conditions N Heart Disease/Heart Problems N Hospitalizations N Brain Tumors N Acne N Skin Problems N Eating Disorder N Meningitis N Constipation N Tuberculosis N Cerebral Palsy N Myocardial Infarction N Asthma N Substance Abuse N Peripheral Vascular Disease N Vertigo N Sleep Disorder N Cirrhosis N Pulmonary Embolism N Chicken Pox N Hematologic Disease N Flomax Use Past or Present N Anxiety/Depression N Thyroid Disease N Colon Cancer N Lung Disease N Glaucoma N Developmental or Behavioral Disorders N Bipolar N Pacemaker N Diverticulitis/Diverticulosis N Orthopedic Problems N Anesthesia Complications N Orthotics N Head Injury/Concussion N Congenital Anomalies N Calvin Bite N Chronic Kidney Disease N Endometriosis N Liver Disease N Schizophrenia N Dialysis N Speech Delay N Chronic Obstructive Pulmonary Disease N Parkinson's Disease N Thyroid Problems N GI Problems N Developmental Delay N Anemia N Multiple Sclerosis N Immune System Disorder N Colon Polyps N Heart Attack (PA) N Diabetes Y Cardiomyopathy N Blood Transfusions N Heart Problems/Murmur N Eye Trauma N Congestive Heart Failure (CHF) N Valvular Heart Disease N Hyperlipidemia N Double Vision N Abuse/Domestic Violence N Hepatitis B N Lupus N Epilepsy/Seizures N Reflux/GERD N Aneurysm N Heart Disease N Bronchitis Y Pre-Eclampsia N Hypertension Y Heart Failure N Other N Gout N High Blood Pressure Y Atrial Fibrillation N Kidney Stones N Head Trauma/Injury N Congenital Heart Disease N Spine Problems N Gastrointestinal Disease N Lung Mass N Sinusitis N Obstructive Sleep Apnea N Muscle, Joint, or Bone Problems N Autoimmune disease N Vision or Eye Problems N Arthritis N Blood Clot N Cancer N Seasonal allergies N Leg or Foot Ulcers N Raynaud's Disease N Aortic Aneurysm N Arrhythmia N Headaches N Heart Problems N Ambloypia N Ear or Hearing Problems N Hyperparathyroidism N Migraines N Artificial Joints N Kidney or Bladder Problems N NSAID Use N Encephalitis N PTSD N Ulcers N Prostate Hypertrophy N Bleeding Disorder N AIDS/HIV N Urinary Tract Infection N Back Problems N Allergies N Atrial Flutter N GERD/Reflux N Hepatitis N Autism Spectrum Disorder (ASD) N Breast Cancer N Hernia N Hypothyroidism N Breast Problem N Genitourinary Disease N Deep Vein Thrombosis N Varicose Veins N Cystic Fibrosis N Hearing Loss N Developmental Problems N Carotid Disease N Vitamin D Deficiency N ADHD N Bladder or Kidney Problems N High Cholesterol N Meniers N Valvular Abnormalities N Psychiatric/Mental Health Condition N Organ Transplant N Foot Deformity N Allergies/Hayfever N Dyslipidemia N Hyponatremia N Diabetic Eye Disease N Osteoporosis/Osteopenia N Back Pain N Proteinuria N Mental Illness N Neurological Problems N Ovarian Cancer N Bedwetting N Seizures/Epilepsy N Kidney Failure N Ocular trauma N Diverticulitis N Dementia N Sleep Apnea N Mental Problems N Warfarin Management N Osteoporosis N Gynecological History Statement/Question Response Date of Last Mammogram 05/11/2023 On BCP's at Conception? N STIs/STDs N HPV Vaccine N Most Recent Mammogram 03/28/2017 Age at Menarche 16 Current Control Method Hysterectom y Age at First Child 20 Sexually Active? Y Menses Monthly N Sexual Problems? N LMP Unknown Desired Control Method None Obstetrics History GPAL:G 1 P 1 0 0 1 Type Value Multiple Births 0 Full Term 1 Induced 0 Spontaneous 0 Premature 0 Living 1 Ectopics 0 Total 1 Immunizations Vaccine Type Date Status Note Provider Nam e and Address Organization Details Recorded Time Influenza, split virus, quadrivalent, preservative 8 completed Not Available [facility] 08/15/2023 08:36:07 COVID-19, mRNA, LNP-S, PF, 100 mcg/0.5mL dose or 50 mcg/0.25mL dose 1 completed Not Available [facility] 08/15/2023 08:36:07 COVID-19, mRNA, LNP-S, PF, 100 mcg/0.5mL dose or 50 mcg/0.25mL dose 1 completed Not Available [facility] 08/15/2023 08:36:07 COVID-19, mRNA, LNP-S, PF, 100 mcg/0.5mL dose or 50 mcg/0.25mL dose 2 completed Not Available [facility] 08/15/2023 08:36:07 COVID-19, mRNA, LNP-S, PF, 100 mcg/0.5mL dose or 50 mcg/0.25mL dose 1 completed Not Available [facility] 08/15/2023 08:36:07 Influenza, high-dose, quadrivalent, PF 0 completed Not Available [facility] 08/15/2023 08:36:07 Influenza, adjuvanted, trivalent, PF 0 completed Not Available [facility] 08/15/2023 08:36:07 pneumococcal polysaccharide PPV23 9 completed Not Available [facility] 08/15/2023 08:36:07 Pneumococcal conjugate PCV 13 6 completed Not Available [facility] 08/15/2023 08:36:07 COVID-19, mRNA, LNP-S, PF, 100 mcg/0.5mL dose or 50 mcg/0.25mL dose 1 completed Not Available [facility] 08/15/2023 08:36:07 Tdap 9 completed Not Available [facility] 08/15/2023 08:36:07 Influenza, high-dose, quadrivalent, PF 2 completed Not Available [facility] 08/15/2023 08:36:07 pneumococcal polysaccharide PPV23 7 completed Not Available [facility] 08/31/2019 02:33:05 RSV, recombinant, protein subunit RSVpreF, adjuvant reconstituted, 0.5 mL, PF 3 completed Alicia Patterson MA null, [place] - [facility] 11/24/2023 14:16:29 Pneumococcal conjugate PCV 13 5 completed Not Available [facility] 08/15/2023 08:36:07 Influenza, split virus, quadrivalent, preservative 1 completed Roberta Rothman [place] null, [place] [facility] 05/28/2021 16:50:55 COVID-19, mRNA, LNP-S, bivalent, PF, 50 mcg/0.5 mL or 25mcg/0.25 mL dose 3 completed Rani Thapa [place] null, [place] [facility] 09/21/2022 15:32:13 Influenza, high-dose, quadrivalent, PF 3 completed Rommel Baptiste MD Attn: [address] [place], [address], [place] [facility] 06/09/2023 18:21:18 Influenza, high-dose, trivalent, PF 4 completed Rommel Baptiste MD Attn: [address] [place], [address], [place] [facility] 06/17/2024 13:31:01 Past Encounters Encounter ID Performer Location Encounter Start Date Encounter Closed Date Diagnosis/Indication Diagnosis SNOMED-CT Code Diagnosis ICD10 Code Diagnosis Note [id number] Rommel Baptiste MD [facility] (Adult Med) [address] [place] [address] 09/30/2014 14:39:18 09/30/2014 17:02:51 Uncontrolled type 2 diabetes mellitus [id number] 64 y/o BF who was last seen 04/29/2014, she states that she has been fully compliant with her Metformin 1000mg po bid and Glimepirid e 4mg po daily, her last HBA1C is 8.1 which is suboptimal , she agrees that she can do better with her diet Knee pain [id number] Chron ic right knee with no history of any recent trauma, obtain a plain x-ray and check the uric acid level. I suspect that this is most likely osteoarthr itis. Acute bronchitis [id number] Levaquin 750mg po daily for 5 days as she cannot tolerate the Z-tono and if there is no improvemen t then I will need another CXR, she had one in 03/2014. Cessation was discussed. Benign hypertension [id number] Uncontroll ed on Chlorthali done 25mg po daily, Clonidine 0.1mg po HS and Losartan 100mg po daily, it previously was well controlled on her last visit and today as well as during her visit to it is not really ideal. I will add Amlodipine 5mg po daily. Side effects were discussed and a close follow up in 6 weeks [id number] Rommel Baptiste MD [facility] (Adult [facility]) [address] [place] [phone] 01/20/2015 15:27:13 01/20/2015 17:40:32 Carpal tunnel syndrome 01058056 Patient has a history of right sided CTS and apparently this is why she was declared disabled, she thinks she had NCS?EMG done at [facility] ? She had requested a brace and she continues to complain of pain and weakness of the right thumb and hand with a tendency to drop things during normal house hold. My exam today is more suggestive of a De Quervain's Tenosynovi tis, although I agree that she has a positive Tinel's sign, her Phalen's test was negative. EMG/NCS as well as plain X-rays. Although, she has requested a wrist brace from the [employer], I think an Orthopedic evaluation will be prudent Benign hypertension [id number] Controlled on Chlorthali done 25mg po daily, Clonidine 0.1mg po HS and Losartan 100mg po daily, I had added Amlodipine 5mg po daily on the last visit, she is not taking it now, she states she was of the impression that it was only for 6 weeks! Knee pain 81966050 X ray s confirm degenerati ve arthritis, the report was discussed with her. Screening mammography 15939503 Sinusitis 65103149 Uncontroll ed type 2 diabetes mellitus 082119710 Compliant with her Metformin 1000mg po bid and Glimepirid e 4mg po daily, her last HBA1C is 8.1 [id number] MD Robert Albright ([facility]) [address] [place] [phone] 04/01/2015 11:42:29 04/01/2015 14:22:14 Gynecologic examination 74882577 Screening mammography 82251280 Screening for osteoporosis 659726912 Bacterial vaginosis 382340586 [id number] MD Robert Espino (Adult Med) [address] [place] [phone] 05/26/2015 15:22:11 05/26/2015 17:26:06 Carpal tunnel syndrome 33132677 G56.00 She was seen by the orthopedic surgeon, she did not want surgery or an injection, a brace was ciara baird Uncontroll ed type 2 diabetes mellitus 697133802 E11.65 Compliant with her Metformin 1000mg po bid and Glimepirid e 4mg po daily, her last HBA1C is 8.1 We should increase her Glimepirid e to 5mg po daily Verruca plantaris 558342 08 B07.0 L84 Otalgia 18484628 H92.01 Pain of hip region 29356 002 M25.551 Most likely OA She had x-rays of the right hip done in the ER 05/20/2013, there was suggestion of cystic changes and degenerati ve changes. I have reviewed the report with Ms. Ortega Hypokalemia 80046674 E87 .6 Compliance was discussed Benign hypertension 1072 5009 I10 Controlled on Chlorthali done 25mg po daily, Clonidine 0.1mg po HS, Losartan 100mg po daily and Amlodipine 5mg po daily [id number] MD Robert Espino (Adult Med) [address] [place] [phone] 08/06/2015 14:31:38 08/06/2015 15:25:13 Pain of hip region 10409656 M25.551 Most likely OA, she had x-rays of the right hip done in the ER 05/20/2013, there was suggestion of cystic and degenerati ve changes. I had reviewed the report with Ms. Ortega on her last visit, she was seen by the PT and this was somewhat helpful, the repeat x-rays done 07/07/2015 reveal mild degenerati ve changes (verbal report). Although she appears to feel that the pain starts at her right medial malleolus and radiates medially to her inguinal area, she has a lot of pain with rotation of the hip, without any obvious varicositi es. The other possibilit y is an inguinal strain. Uncontroll ed type 2 diabetes mellitus 950005759 E11.65 Compliant with her Metformin 1000mg po bid and Glimepirid e 5mg po daily, her HBA1C is now 7.4 I will add Aspirin 81mg po daily to her regimen, she most likely will need a new glucometer as I do not plan on requesting a PA. [id number] [facility] [address] [place] [address] 12/16/2015 15:09:51 12/16/2015 18:08:43 Pain of hip region 88203741 M25.559 M25.551 Initial improvemen t after PT and Orthopedic evaluation , she however reports recurrence of some of her symptoms and she has requested a Tens unit that helped during PT. Abdominal pain 33821980 R10.9 She describes abdominal distention , loud sounds from her GI tract and epigastric discomfort , she had surgery for her hiatal hernia? in . SHe also had a colonoscop y in 2009, I have requested a copy. I will proceed with a CT scan. Otitis externa 3894810 H 60.93 [id number] MD Robert Espino (Adult Med) [address] [place] [address] 01/20/2016 09:49:00 01/21/2016 10:48:35 Computed tomography result abnormal 110161154 R93.8 CT scan 12/30/2015 Abnormal areas gastric fundus, transverse and right colon, cecum as well as the adrenals. Colonoscop y 2009 GI evaluation scheduled for 01/21/2016 CT adrenals needed The results were discussed with the patient Contusion of knee 668117 06 S80.01XA Tylenol PRN, she cannot tolerate NSAIDS, an SAMANTHA bandage was applied. [id number] MD Robert Espino (Adult Med) [address] [place] [phone] 02/12/2016 09:44:15 02/12/2016 10:30:52 Computed tomography result abnormal 503959886 R93.8 CT scan 12/30/2015 Abnormal areas in the gastric fundus, transverse and right colon, cecum as well as the adrenals. Colonoscop y 2009, the EGD was okay. GI evaluation & colonoscop y scheduled for 02/17/2016 Adrenal mass 562374756 R 19.09 Discussed in detail, she wanted more printed informatio n. Without a definitive diagnosis, this is difficult. I have however explained this to her in detail, our options include a repeat CT scan in 4-6 months or a PET/CT scan, she has opted for the latter. Injury of knee 346149447 S89.91XD Something wrong with it, she denies any improvemen t and she continues to have difficulty going up and down the steps. I have discussed her x ray report with her [id number] MD Robert Espino (Adult Med) [address] [place] [phone] 05/16/2016 15:29:49 05/18/2016 15:51:18 Adrenal mass 015509727 R19.09 Discussed in detail, the PET scan suggests benign adrenal masses Chronic cough 06161077 R 05 Wax in ear canal 5732070 02 H61.21 Abdominal pain 56489876 R10.9 She had pain with movement, especially when reaching over. Immunization refused 275 146640 Z28.21 Spots on skin 603413565 L98.8 She uses a prescripti on topical agent chronicall y, I have recommende d that she see a dermatolog ist, she has declined. Uncontroll ed type 2 diabetes mellitus 033937814 E11.65 Screening mammography 24 882195 Z12.31 [id number] MD Robert Espino (Adult Med) [address] [place] [address] 09/08/2016 14:45:03 09/09/2016 11:46:26 Atypical chest pain 126673001 R07.89 Most likely MSK Insomnia 106475504 G47.0 0 Tylenol PM Active or passive immunization 054904440 Z23 [id number] MD Robert Carty ([facility]) [address] [place] [address] 09/29/2016 14:57:04 09/30/2016 11:08:51 Gynecologic examination 59476646 Z01.419 Venereal d isease screening 889537393 Z11.3 Pruritus of vulva 565700 00 L29.2 counseled about possible causes Bacterial vaginosis 4197 78218 N76.0 Candidal vulvovaginitis 77424420 B37.3 Screening for malignant neoplasm of colon 118266365 Z12.11 Essential hypertension 92144200 I10 advised to f/u with PCP [id number] MD Robert Craty ([facility]) [address] [place] [address] 10/13/2016 15:26:25 10/14/2016 13:51:38 Pruritus of vulva 72294182 L29.2 patient states symptoms resolved after taking Diflucan and Flagyl Candidal vulvovaginitis 27298270 B37.3 symptoms improved Body mass index 25-29 - overweight 019173375 Z68.29 [id number] MD Robert Espino (Adult Med) [address] [place] [address] 12/21/2016 15:31:18 12/21/2016 18:14:38 Adrenal hyperplasia 572446316 E27.[address] Chronic cough 49827654 R 05 Tobacco de pendence syndrome 47386208 F17.290 Cessation was discussed Uncontroll ed type 2 diabetes mellitus 805160387 E11.65 [id number] MD Robert Espino (Adult Med) [address] [place] [address] 04/06/2017 15:29:30 04/06/2017 17:55:49 Uncontrolled type 2 diabetes mellitus 309788682 E11.65 Uncontroll ed, she is opposed to Insulin or an injectable . I will add Jardiance 10mg po daily, side effects were discussed in detail. She should look out for low BS and if they occur one may need to decrease or discontinu e her KITCHEN Adrenal hyperplasia [address] as previously ordered Gastroesop hageal reflux disease 871202401 K21.0 She describes fullness in the epigastric area [id number] MD Robert Carty ([employer]) [address] [place] [phone] 0 04/07/2017 15:12:05 04/10/2017 12:13:40 Pruritus of vulva 81939615 L29.2 Counseled about it. HSV cultures done. Await for result if positive will treat. If negative and vulvar itching does not improve possible biopsy of vulva. Explained patient about it. She verbalized understand ing. Bacterial vaginosis 4197 65659 N76.0 Counseled about it Increased blood pressure 46040917 R03.0 advised to f/u with PCP [id number] MD Robert Carty ([employer]) [address] [place] [phone] 0 05/02/2017 14:29:31 05/03/2017 14:24:00 Pruritus of vulva 83187677 L29.2 Counseled about it. Since no improvemen t offered doing vulvar biopsy and Counseled about the procedure and its risks including infection, bleeding, damage to internal organs, indicated procedures . Consent signed and in chart. [id number] MD Robert Carty ([employer]) [address] [place] [address]21[address] 0 05/11/2017 14:34:00 05/12/2017 11:10:56 Junctional melanocytic nevus of skin 321656998 D22.9 d/w patient vulvar biopsy result. Dermatolog y referral placed on 05/09/17. Advised nurse Christina TO CALL DERMATOLOG IST TO MAKE AN APPOINTMEN T FOR PATIENT. Local infe ction of wound 26174909 B99.9 POSSIBLE INFECTION OF VULVAR BIOPSY SITE. D/W patient. Advised if fever > 100.4, severe pain to go to ER [id number] MD Robert Espino (Adult Med) [address] [place] [address] 01826[address] 0 07/05/2017 15:53:35 07/05/2017 17:12:32 Immunization refused 974194331 Z28.20 Type 2 kat betes mellitus without complication 783725354 E11.9 Uncontroll ed, she describes low blood sugars when she misses a meal.Stop Glimepirid e 1mg HSContinue Metformin BIDContinu e Amaryl 4 mg AM with BF.I take the medication , I want no shotsLabs as ordered Solitary n odule of lung 460752371 R91.1 There was a detailed discussion about her CT A/P findings especially with respect to the 5.3 mm nodule. She smokes and hence she is at high risk and her options are a follow up chest CT in 6 months or an evaluation by the pulmonolog ist. Adrenal hyperplasia 4199 52048 E27.8 Stable, most likely benign. Hallux una lucio AND bunion 164910377 M20.10 [id number] MD Robert Carty ([employer]) [address] [place] [address] 46255[address] 0 11/08/2017 16:30:34 11/09/2017 12:00:39 Gynecologic examination 83970757 Z01.419 Age appropriat e counseling done Overweight 420218208 E66 .3 Counseled About weight loss, diet and excercise. Patient refused mds coordinator consult. Venereal d isease screening 700430310 Z11.3 Patient refused blood work. Pruritus of vulva 217971 00 L29.2 Counseled about it. Since no improvemen t - dermatolog y referral. Candidiasis of vulva 108 5006 B37.3 COUNSELED ABOUT IT. [id number] MD Keli Umanzor FP ([facility]) [address] [place] [address] 03/27/2018 16:09:48 03/30/2018 13:15:46 Pruritus of vagina 63504749 L29.3 No evidence of lichen sclerosus et atrophicus [id number] MD Robert Helms ([facility]) [address] [place] [address] 0 03/29/2018 15:27:47 04/04/2018 16:19:46 Screening mammography 57433975 Z12.31 Urinary tr act infectious disease 05515291 N39.0 Uncontroll ed type 2 diabetes mellitus 640664120 E11.65 Adrenal hyperplasia 4199 73611 E27.8 [id number] MD Robert Espino (Adult Med) [address] [place] [address] [phone] 0 04/10/2018 14:58:24 04/11/2018 08:57:18 Uncontrolled type 2 diabetes mellitus 100168199 E11.65 Uncontroll ed, she could not tolerate the side effects she attributed to Jardiance. Imaging re sult abnormal 177688294 R93.[address] scan of the chest done 10/20/2017, there is a stable lesion on T12 Tobacco de pendence in remission 921249627 F17.201 Benign hypertension 1072 5009 I10 Controlled on Chlorthali done 25mg po daily, Clonidine 0.1mg po HS, Losartan 100mg po daily and Amlodipine 5mg po daily Medication monitoring 39 3826457 Z51.81 Osteoarthr itis of knee 559538751 M17.11 Adrenal hyperplasia 4199 43845 E27.8 Stable, most likely benign. [id number] Rommel Baptiste MD [facility] (Adult Med) [address] [place] [address] [phone] 0 05/22/2018 09:43:06 05/23/2018 10:25:40 Type 2 diabetes mellitus without complication 868236256 E11.9 Uncontroll ed.Continu e Metformin BID Increase Amaryl to 5 mg AM with BF. Steatotic liver disease 577077705 K76.0 Discussed Visual impairment 101857 003 H54.7 Oropharyng eal dysphagia 95816655 R13.12 Influenza vaccine needed 4634311591 106 Z23 High dose needed [id number] Rommel Baptiste MD [facility] (Adult [facility]) [address] [place] [address] 41232[address] 0 08/15/2018 15:34:46 08/16/2018 08:49:06 Flank pain 486124922 R10.9 Steatotic liver disease 607006266 K76.0 Discussed previously Low back pain 720095188 M54.5 MRI as ordered Adrenal mass 946174706 R 19.09 Previously discussed in detail, the PET scan suggests benign adrenal masses Tobacco de pendence in remission 567955136 F17.300 [id number] MD Robert Espino (Adult Med) [address] [place] [address] 69665[address] 0 09/27/2018 16:24:43 09/28/2018 10:59:05 Solitary nodule of lung 593573197 R91.[address] scan 09/12/18 suggests a 5.5 mm nodule.Thi s is not a new issue, she follows up with the pulmonolog ist, Jasmin Moore NP and I will make sure a copy is faxed to her office. She is to keep her follow up appointmen ts and have her serial studies done. 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 Type 2 kat betes mellitus without complication 502612725 E11.9 Adrenal hyperplasia 4199 15576 E27.8 Stable, most likely benign. Steatotic liver disease 928968551 K76.0 Discussed Umbilical hernia 8615854 07 K42.9 [id number] [facility] [address] [place] [address] [phone] 0 01/25/2019 16:14:02 01/28/2019 08:49:07 Type 2 diabetes mellitus without complication 945966370 E11.9 Stop Glimepirid e 1 mgTake Glimepirid e 4 mg po BIDContinu e Metformin 1000 mg po BIDMonitor blood sugars closelyEnd ocrinologi st to see Screening mammography 24 228317 Z12.31 [id number] LUCIUS ANDERSEN ([facility]) [address] [place] [address] [phone] 0 03/15/2019 14:55:29 03/18/2019 11:55:34 Screening mammography 59326053 Z12.31 Gynecologi c examination 05225395 Z01.419 Pruritus of vulva 354578 00 L29.2 Recommende d that pt continue using triamcinol one as prescribed by dermatolog y as that seems to be helping. Avoid harsh soaps and over scrubbing. [id number] MD Robert Espino (Adult Med) [address] [place] [address] [phone] 0 04/05/2019 16:00:15 04/08/2019 09:38:44 Disorder of lipid metabolism 893235409 E78.9 Her LDL is not optimal, she may be better off with a more potent statin every other day Gastroesop hageal reflux disease 455467568 K21.0 She was seen by Dr Coby elder and had an EGD in 2017 and she states that she was called and advised to follow up. She however cannot make it to [facility] and she states thats he was told that Dr Baptiste would know what to doEGD 04/20/2017, Reflux esophagiti s and gastritis Type 2 kat betes mellitus without complication 286554234 E11.9 Continue Glimepirid e 4 mg po BIDContinu e Metformin 1000 mg po BIDMonitor blood sugars closelyEnd ocrinologi st to see Otitis externa 3602758 H 60.93 [id number] MD Robert Espino (Adult Med) [address] [place] [address] [phone] 0 06/14/2019 09:35:48 06/17/2019 09:05:37 Acute otitis media 2552706 H66.93 Treatment failure due to non compliance with instructio ns.Stop OfloxacinA ugmentinNe omycin-Julius ymyxin-HC Noncomplia nce with medication regimen 865881522 Z91.14 [id number] MD Robert Espino (Adult Med) [address] [place] [address] [phone] 0 08/20/2019 15:29:03 08/21/2019 10:24:44 Computed tomography result abnormal 193614343 R93.89 Solitary n odule of lung 483122361 R91.[address] scan 09/12/18 suggests a 5.5 mm nodule.Thi s is not a new issue, she neds to follow up with the pulmonolog ist, Jasmin Moore NP. Type 2 kat betes mellitus without complication 709985224 E11.9 Continue Glimepirid e 4 mg po BIDContinu e Metformin 1000 mg po BIDMonitor blood sugars closelyEnd ocrinologi st to see Adrenal adenoma 18702650 8 D35.02 D35.01 Stable, most likely benign. The radiologis t does not recommend any further imaging of the lipid rich adenomas, we have CT scans from 2015, 2016 and 2018. She was given the option of having another CT scan and I read the report with her. [id number] LUCIUS ANDERSEN ([facility]) [address] [place] [address] [phone] 10/17/2019 14:49:09 10/21/2019 14:19:25 Venereal disease screening 066890043 Z11.3 Candidiasis of vagina 72 075650 B37.3 Pt h/o recurrent candidiasi s.On exam: Creamy, bright yellow discharge. Informed pt of exam findings. Will notify and tx pending vaginal swab results.Wi ll trial terconazol e. Instructed to use as prescribed . Reassess at RTC. Dysuria 87542008 R30.9 UA negative. Vaginal swab obtained results pending. [id number] MD Robert Espino (Adult Med) [address] [place] [address] [phone] 0 03/13/2020 11:32:08 03/16/2020 11:17:38 Uncontrolled type 2 diabetes mellitus 971829202 E11.65 Uncontroll ed, she could not tolerate the side effects she attributed to Jardiance. Solitary n odule of lung 939312915 R91.[address] scan 09/12/18 suggests a 5.5 mm nodule.Thi s is not a new issue, she has followed up with the pulmonolog ist, Jasmin Moore NP and apparently had a CT scan but never followed up. [id number] LUCIUS ANDERSEN ([facility]) [address] [place] [address] [phone] 04/08/2020 14:40:53 04/09/2020 08:49:23 Vulvovaginitis 19643963 N76.0 Patient notes pruritis to lower part of vulva including perineal area over past 1-2 months. Denies discharge, bleeding, or urinary symptoms. PE unremarkab le aside from some yeast near clitoris. Advised patient to try zinc oxide to area as needed. Educated patient to keep area clean, dry, and avoid tight fitting clothing. Do not overwash or overscrub area. Use bland soaps. F/u nuswab. RTC if symptoms worsen or no change. Candidiasis of vulva 108 5006 B37.3 Patient noted pruritis and some odor. White, clumpy discharge noted around clitoris under the clitoral soto. Patient to begin nystatin cream and apply to area twice a day. Educated patient that cold compresses to area can also assist with itching. Avoid scratching . Candidiasi s care instructio ns given. [id number] MD Robert Espino (Adult Med) [address] [place] [address] [phone] 11/05/2020 14:39:45 11/06/2020 08:35:50 Benign hypertension 94836201 I10 Uncontroll ed on Chlorthali done 25mg po daily, Clonidine 0.1mg po HS, Losartan 100 mg po daily and Amlodipine 5mg po daily. 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 Brace EMG/NCS Pain of bi lateral hands 0165240299 9579399 M79.641 M79.642 Renewal of prescription 773654175 Z76.0 Judicious use Solitary n odule of lung 996659596 R91.[address] scan 09/12/18 suggests a 5.5 mm nodule. This is not a new issue, she has followed up with the pulmonolog ist, Jasmin Moore NP and apparently had a CT scan but never followed up. Addendum 11/05/2020 6.5 mm R.LL pulmonary nodule 10/10/2019 She needs to follow up with her pulmonolog ist, Dr Rodriguez Uncontroll ed type 2 diabetes mellitus 657000940 E11.65 Uncontroll ed, she is under the care of the endocrinol ogist, Dr Hi and she had recent lab tests done Tobacco de pendence in remission 611022518 F17.236 [id number] MD Robert Espino (Adult Med) [address] [place] [address] [phone] 0 05/28/2021 15:48:37 06/01/2021 06:51:06 Administration of influenza vaccine 82995307 Z23 Insomnia 536191354 G47.0 0 Difficulty initiating sleepShe cannot take Tylenol PM and MelatoninU nisom?Cont inue Benadryl as it has been very effective Benign hypertension 1072 5009 I10 Uncontroll ed on Chlorthali done 25mg po daily, Clonidine 0.1mg po HS, Losartan 100 mg po daily and Amlodipine 5mg po daily. Increase Amlodipine to 10 mg as previously discussed in October,. Osteoarthritis 362371559 M19.90 Medication monitoring 39 5713085 Z51.81 [id number] [facility] ([facility]) [address] [place] [address] [phone] 09/14/2021 15:32:30 09/20/2021 12:23:57 Vulvovaginitis 16743581 N76.0 PE unremarkab le. Appears chronic. 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 Nuswab sample collected and sent for testing. Will treat as needed. Advised OTC hydrorcort isone ointment and zinc oxide paste on vulva prn. Use mild, unscented soaps or plain water when washing, avoid any products with fragrance. Wear cotton underwear and loose fitting clothing. Wash only once per day, do not overscrub or douche. Can use ice pain or soak in cool water to relieve itching, avoid scratching . [id number] MD Robert Espino (Adult Med) [address] [place] [address] [phone] 10/28/2021 14:23:22 10/29/2021 09:23:13 Solitary nodule of lung 750205072 R91.1 10/28/2021 T 04/30/2021 6.5 mm nodule Addendum 11/05/2020 6.5 mm R.LL pulmonary nodule 10/10/2019 She needs to follow up with her pulmonolog ist, Dr Rodriguez The CT scan 09/12/18 suggests a 5.5 mm nodule. This is not a new issue, she has followed up with the pulmonolog ist, Jasmin Moore NP and apparently had a CT scan but never followed up. Uncontroll ed type 2 diabetes mellitus 359674128 E11.65 Uncontroll ed, she is under the care of the endocrinol ogist, Dr Hi and she had recent lab tests [id number] 8% 02/2021 History of polyp of colon 055706418 Z86.010 Colonic polyp 04/14/2016 Q 5 yearsRefer red 11/05/2020 iscussed Chronic insomnia 5153846 04 F51.04 Continue Benadryl PRNPt education on insomnia Vitamin D deficiency 347 20020 E55.9 [id number] MD Robert Espino (Adult Med) [address] [place] [address] [phone] 0 12/22/2021 14:33:26 12/23/2021 11:20:11 Body mass index 30+ - obesity 698002097 Z68.31 Hypokalemia 17525631 E87 .6 Compliance with KCL as is has apparently not been the bestRechec k K Pain of ri ght shoulder joint 7653215969 6015825 M25.511 Cervical radiculopathy 91157878 M54.12 [id number] Rommel Baptiste [facility] ([facility]) [address] [place] [address] [phone] 02/22/2022 14:29:20 02/23/2022 11:12:55 Degeneration of cervical intervertebral disc 26838497 M50.30 Osteoarthr itis of shoulder region 80550047 M19.019 Intentiona l weight loss 315519164 R63.8 -14 lbs Drug-induc ed hypokalemia 755915329 E87.6 OV 02/22/2022K 3.5 12/22/2021I need clarificat ion and a repeat level with her on her Potassium as prescribed Labs 12/22/2021, K 3.5 on KCL 20 mEq PO dailyIncre ase KCL to a total of 40 mEq po dailySee the eRxRepeat K in 1 week ERROR 12/23/2021I gnore the above, she is already on 40 meEq Irregular heart beat 361 486776 R00.8 Screening mammography of bilateral breasts 6504309991 10017 Z12.31 [id number] LUCIUS ANDERSEN ([facility]) [address] [place] [address] [phone] 0 05/11/2022 15:34:02 05/16/2022 15:49:34 Vulvovaginitis 47100159 N76.0 PE w/ dry vulvar skin. Nuswab sample collected to r/o infection. Will treat as needed. Advised OTC hydorcorti sone ointment and zinc oxide paste on vulva prn. Use mild, unscented soaps or plain water when washing, avoid any products with fragrance/ Vagisil. Wear cotton underwear and loose fitting clothing. Wash only once per day, do not overscrub or douche. Can use ice pain or soak in cool water to relieve itching, avoid scratching . RTC if symptoms do not improve. [id number] MD Robert Espino (Adult Med) [address] [place] [address] [phone] 08/31/2022 15:48:52 09/01/2022 09:27:41 Overweight 293892938 E66.3 Solitary n odule of lung 529881325 R91.1 Her nodule is stable on the CT scan done on 06/23/2022 She was also seen by her pulmonolog ist, Dr Momin 10/28/2021 T 04/30/2021 6.5 mm nodule Addendum 11/05/2020 6.5 mm R.LL pulmonary nodule 10/10/2019 She needs to follow up with her pulmonolog ist, Dr Rodriguez The CT scan 09/12/18 suggests a 5.5 mm nodule. This is not a new issue, she has followed up with the pulmonolog ist, Jasmin Moore NP and apparently had a CT scan but never followed up. Postmenopausal state 764 54230 Z78.0 Medication monitoring 39 0507321 Z51.81 Uncontroll ed type 2 diabetes mellitus 350116634 E11.65 Uncontroll ed, she is under the care of the endocrinol ogist, Dr Hi.HBA1C 8% 12/06/2021, repeat labs have been ordered by her endocrinol ogist Adrenal hyperplasia 6262 96675 E27.8 Stable, this appears to be fatty tissue. This was previously discussed and since she asked about it again I have reviewed her imaging report with her (CT A&P 09/12/2018. The advice of the radiologis t is that there is no need for further imaging. [id number] LUCIUS FLORENCE (Peds) [address] [place] [address] [phone] 09/21/2022 14:49:55 09/22/2022 09:08:50 Administration of SARS-CoV-2 mRNA vaccine 6696357037 Z23 [id number] MD Robert Espino (Adult Med) [address] [place] [address] [phone] 10/24/2022 15:43:00 10/25/2022 15:55:55 Type 2 diabetes mellitus without complication 341753270 E11.9 Continue Glimepirid e 4 mg po BIDContinu e Metformin 1000 mg po BIDMonitor blood sugars closelyEnd ocrinologi st to see Addendum 02/05/2021 ee the messageTID testing, HBA1C 10.2 10/05/2020 Chronic ce rebral ischemia 735396171 I67.82 Degenerati on of cervical intervertebral disc 89649413 M50.30 [id number] MD Robert Espino (Adult Med) [address] [place] [address] [phone] 11/21/2022 15:40:43 11/22/2022 10:13:32 Uncontrolled type 2 diabetes mellitus 371286758 E11.65 Uncontroll ed, she is under the care of the endocrinol ogist, Dr Hi.HBA1C 8.1 (11/04/2022 ) 8% 12/06/2021, repeat labs have been ordered by her endocrinol ogist Screening for malignant neoplasm of breast 567645744 Z12.31 Cervical radiculopathy 37029947 M54.12 ER 10/25/[address] 10/15/2022 and MRI on 11/17/2022 [id number] MD Robert Espino (Adult Med) [address] [place] [address] [phone] 05/19/2023 15:34:45 05/23/2023 09:52:31 Type 2 diabetes mellitus without complication 758610197 E11.9 Endocrinol ogy OV 11/21/2022 ontinue Glimepirid e 4 mg po BIDContinu e Metformin 1000 mg po BIDMonitor blood sugars closelyEnd ocrinologi st to see Addendum 02/05/2021 ee the messageTID testing, HBA1C 10.2 10/05/2020 Low back pain 136010822 M54.50 Peripheral neuropathic pain 908141950 M79.2 Body mass index 30+ - obesity 404312352 Z68.31 Inguinal pain 922181161 R10.2 [id number] LUCIUS ANDERSEN ([facility]) [address] [place] [address] [phone] 0 06/15/2023 15:35:51 06/19/2023 12:49:04 Gynecologic examination 27423350 Z01.419 Cervical cancer screening: s/p total hysterecto myBreast cancer screening: Last mammo on 05/11/2023, repeat in 1 yearColono scopy: Will schedule appt with Dr. Hendricks for colonoscop ySTI screening: Safe sex practices discussed. Diet/exerc ise: Counseled regarding importance of physical activity, healthy diet and appropriat e calcium intake. DEXA UTD and normal.RTC prn Superficia l folliculitis 854863398 L73.9 Patient noticed non-tender bump in R inguinal fold x years. Denies drainage, redness, or warmth. PE with small ingrown hair/open comedone. Discussed with patient that it is unlikely cause of her leg pain. Keep area clean and dry. RTC if it become inflamed, enlarged, or begins to have drainage. Pain radia ting to right leg 074152285 M79.604 Pt reports worsening sharp shooting R inguinal pain with numbness/t ingling/we akness down R leg, patient attributes pain to bump felt in R inguinal fold for years. Denies urinary incontinen ce, fecal incontinen ce, trauma, or recent fall. Inguinal nodule noted to be benign skin etiology (folliculi tis) on exam. Pain likely to be musculoske letal in nature. Encouraged patient to follow up with MRI as PCP ordered. Further eval per PCP. [id number] MD Robert Espino (Adult Med) [address] [place] [address] [phone] 06/09/2023 14:33:53 06/13/2023 12:29:22 Inguinal pain 771589777 R10.2 The DDX includes an inguinal strain and radicular pain Degenerati on of lumbar intervertebral disc 37468068 M51.36 Administra tion of influenza vaccine 53279353 Z23 [id number] MD Robert Espino (Adult Med) [address] [place] [address] 47575-190 0 07/12/2023 14:31:44 07/13/2023 12:14:10 Pain in lower limb 64986793 M79.606 Referred vs trauma Bilateral trochanteric bursitis 4234482318 2414093 M70.61 M70.62 Tendinosis 220984206 M67 .80 MRI scan abnormal 122303 003 R93.89 [id number] MD Robert Espino (Adult Med) [address] [place] [address] [phone] 0 11/24/2023 14:04:22 11/29/2023 15:04:05 Instability of joint of right ankle 4788855116 522697 M25.371 Pain and instabilit y, right medial malleolus Uncontroll ed type 2 diabetes mellitus 419389506 E11.65 Uncontroll ed, she is now under the care of another endocrinol ogist [id number] MD Robert Oconnor ([facility]) [address] [place] [address] [phone] 0 02/19/2024 14:55:12 03/18/2024 15:50:47 Vaginal irritation 898945170 N89.8 On exam, vaginal atrophy noted on exam. Discussed with patient about ruling out infection since she is sexually active. Recommend using Replens vaginal gel for now. Follow up as needed. [id number] MD Robert Espino (Adult Med) [address] [place] [address] [phone] 0 06/17/2024 11:23:03 06/18/2024 14:18:44 Uncontrolled type 2 diabetes mellitus 981562074 E11.65 Uncontroll ed HBA1C 7.3%, previously 7.1% and 6.7%Manage d by the endocrinol ogist OV 11/24/2023 Uncontroll ed, she is now under the care of another endocrinol ogist Osteoarthr itis of knee 645595488 M17.11 Ortho follow up needed Malaise and fatigue 2717 74903 R53.83 Pruritic rash 01347383 L 28.2 Body mass index 30+ - obesity 268333416 Z68.31 Obesity 286682072 E66.9 Administra tion of influenza vaccine 20160759 Z23 [id number] [facility] [address] [place] [address] [phone] 0 07/31/2024 12:01:29 08/01/2024 14:44:49 Headache 11964275 R51.9 MRI 11/2022 Loss of appetite 4209688 6 R63.0 Unexplaine d weight loss 814078367 R63.4 [id number] MD Robert Espino (Adult Med) [address] [place] [address] [phone] 0 01/13/2025 11:57:47 01/14/2025 11:45:31 Uncontrolled type 2 diabetes mellitus 958385056 E11.65 Uncontroll ed, HBA1C 9.2% most likely due to the fact that she did not have her Trulicity. Note from 11/25/2024U ncontrolle d HBA1C 7.3%, previously 7.1% and 6.7%Manage d by the endocrinol ogist OV 11/24/2023 Uncontroll ed, she is now under the care of another endocrinol ogist Chronic insomnia 1509453 04 F51.04 Caution with Benadryl PRNShe had in the past benefitted from Belsomra Right uppe r quadrant pain 405197792 R10.11 Chronic anemia 997427012 D64.9 EGD and colonoscop y on 11/25/2024 Therapeuti c drug monitoring assay 94893028 Z51.81 [id number] MD Robert Espino (Adult Med) [address] [place] [address] [phone] 0 02/04/2025 15:16:07 02/05/2025 09:08:41 Nodule of lung 505060895 R91.1 Discussed, she has seen the pulmonolog ist for this in the past and should repeat the CT scan and follow up Note from 02/03/2025 CT A&P 01/31/2025 8 mm lung nodule in the R. lung base warrants a CT scan of the chest.OV 08/31/2022H er nodule is stable on the CT scan done on 06/23/2022 She was also seen by her pulmonolog ist, Dr Momin 10/28/2021 T 04/30/2021 6.5 mm nodule Addendum 11/05/2020 6.5 mm R.LL pulmonary nodule 10/10/2019 She needs to follow up with her pulmonolog ist, Dr Rodriguez The CT scan 09/12/18 suggests a 5.5 mm nodule. This is not a new issue, she has followed up with the pulmonolog ist, Jasmin Moore NP and apparently had a CT scan but never followed up. Uncontroll ed type 2 diabetes mellitus 653664981 E11.65 Labs 01/31/2025, HBA1C 7.6% OV 01/13/2025Un controlled , HBA1C 9.2% most likely due to the fact that she did not have her Trulicity. Note from 11/25/2024U ncontrolle d HBA1C 7.3%, previously 7.1% and 6.7%Manage d by the endocrinol ogist OV 11/24/2023 Uncontroll ed, she is now under the care of another endocrinol ogist Steatotic liver disease 310980595 K76.0 Discussed Adrenal adenoma 42712636 8 D35.00 The radiologis t has now suggested a [address] scan OV 08/20/2019St able, most likely benign.The radiologis t does not recommend any further imaging of the lipid rich adenomas, we have CT scans from 2015, 2017 and 2019. She was given the option of having another CT scan and I read the report with her. Health Concerns Section Related Observation LastModified by Organization Detai ls LastModified Time None Recorded Concern Status LastModified by Organization Details LastModified Time None Recorded Advance Directives Directive N: Payers Insurance Date Sequence Insurance Name Policy Number Policy Turner Covered Member ID Turner Member ID Guarantor Name 01/12/2025 [place] [facility] Neisha Ortega [id number] Neisha Ortega 06/17/2024 2 [place] Neisha Ortega [id number] Neisha Ortega 01/12/2025 [place] - [facility] Neisha Ortega [id number] Neisha Ortega 01/12/2025 1 [place] Neisha Ortega [id number] Neisha Ortega 06/17/2024 2 [place] WHEN MEDICARE OR MEDICARE REPLACEMENT PRIMARY) Neisha Ortega [id number] Neisha Ortega 06/17/2024 1 [facility] (MEDICARE REPLACEMENT/ADV ANTAGE - HMO) [id number] Neisha Ortega [id number] Neisha Ortega 06/17/2024 1 [facility] (HMO) Neisha Ortega [id number] Neisha Ortega Notes Date Note Type Note Provider Name and Address Organization Details Recorded Time 02/19/2024 text/html ROS as noted in the HPI Neisha is a 73 yo F who presents today for vaginal irritation going for about 3 weeks now. Vaginal irritation - started 3 weeks ago associated with pain on the lower right side and chills. She reports urgency and frequency. Patient reports being sexually active about 2 weeks ago. She reports being with the same partner for many years. Denies painful sex, no dysuria, or foul smell or abnormal discharge. Reports no c/o fever, headaches, changes in vision, shortness of breath, cough, nausea, vomiting, constipation, diarrhea, abdominal pain or leg swelling. Dottie Bustamante MD Attn: Accounting,[address] [place], [address], [facility] 02/28/2024 12:27:50 06/17/2024 text/html Diabetes F/URepo rted by PatientHPIFor associated symptoms, patient reportsweight loss (1 lbs)but reportsno weight gain,no dizziness,no sweats,no headaches,no confusion,no increased thirst,no increased appetite,no increased urination,no blurred vision,no numbness of feet, andno calluses on feet. For labs, patient reportslast a1c result: 7.3%. For context, patient reportstaking aspirin daily,not missing doses of medications, andno side effects from medications. Medicare Annual Wellness VisitReported by PatientSocial/Behavior al HistoryFor diet and nutrition, patient reportshealthy dietanddiscussed vitamin and supplement use. For fracture risk, patient reportsno history of fractures,no recent explained fracture,no sudden unexplained fractures, andno previous musculoskeletal injuries. For physical activity, patient reportsexercises on a regular basis,recent increase in physical activity,good physical condition, anddiscussed exercise habits.Mental Status:For depression risk, patient reportshistory of mood disordersbut reportsnever feels sad, empty, or tearful,no loss of interest in activities,no significant changes in weight,no sleep disturbances or insomnia,no agitation,no loss of energy,no feelings of worthlessness or guilt,no thoughts of suicide, andno history of depression. For orientation, patient reportsno disorientation to time,no disorientation to date, andno disorientation to place. For concentration and memory, patient reportsno decreased concentrating ability,no memory lapses or loss, anddoes not forget words. For speech/motor difficulties, patient reportsno speech difficulties,no difficulty expressing formulated concepts,no difficulty with fine manipulative tasks,no difficulty writing/copying,no slowed reaction time, anddoes not knock things over when trying to pick them up.Functional AbilityFor vision, patient reportsworse near. For hearing, patient reportsno loss of hearing. For activities of daily living, patient reportsable to bathe with limited or no assistance,able to contol urination and bowels,able to dress with limited or no assistance,able to feed self with limited or no assistance,able to get out of chair or bed with limited or no assistance,able to groom with limited or no assistance, andable to toilet with limited or no assistance. For instrumental activities of daily living, patient reportsable to do house work with limited or no assistance,able to grocery shop with limited or no assistance,able to manage medications with limited or no assistance,able to manage money with limited or no assistance,able to prepare meals with limited or no assistance, andable to use the phone with limited or no assistance. For falls risk assessment, patient reportsno frequent falls while walking,no fall in the past year,no fall since last visit, andno dizziness/vertigo. For home safety, patient reportsno unsafe stephanie hazzards,no unsafe stairs,no unsafe gas appliances,working smoke/co detectors,wears protective head gear for biking/high velocity,use of seatbelts,no vision or hearing loss while driving,has hand bars in the bathroom/shower, andgood lighting in the home.ROS as noted in the HPI Your nurse said, I needed to come inSomething wrong with my kneeI wanted to come in.....that I am feeling tired, I don't have the pep that I used Eugenie knee it bothers me, when I take the Calcium it goes away Ms Ortega complains of feeling tired and not having her usual pep. She also continues to complain of right knee pain and a bony protrusion on the lateral aspect of the same knee. She was seen by the orthopedic surgeon, Dr Lomeli on 07/31/2023 and the plan for her OA was discussed. I have tried to review the notes with her today, but she turned her head away from the monitor. She noticed some skin lesions on her lower legs and she wonders if they are bites. Rommel Baptiste MD Attn: Accounting,[address] [place], [address], [place] [facility] 06/17/2024 13:36:52 07/31/2024 text/html HeadacheReported by PatientHPIFor location, patient reportsfrontal (l). For quality, patient reportsnot the worst headache ever. For severity, patient reportsmild. For duration, patient reportsintermittent. For onset/timing, patient reportsbetter. For context, patient reportsnot related to trauma. For alleviating factors, patient reportsnothing gives relief. For associated symptoms, patient reportsno vomiting,no sensitivity to light,tearing/watery eyes,no confusion,no slurred speech,no preceeding aura,no double vision,normal feeling/sensation,no motor paralysis,no dizziness,no sleep disturbances,no nosebleeds,no hoarseness,no sore throat, andno hearing loss.ROS as noted in the HPI I don't have an appetiteI am supposed to have surgery, August 16I be having a lot of pain here on the left side Ms Ortega returns, she has been having intermittent discomfort around the left frontal area of her head. There is no LOC, no headache per se and she describes it as being mild in nature. She is also having sinus surgery (L). Rommel Baptiste MD Attn: Accounting,[address] [place], [address], [place] [facility] 07/31/2024 13:38:25 01/13/2025 text/html Diabetes F/URepo rted by PatientHPIFor associated symptoms, patient reportsweight loss (3.3 lbs)but reportsno weight gain,no dizziness,no sweats,no headaches,no confusion,no increased thirst,no increased appetite,no increased urination,no blurred vision,no numbness of feet, andno calluses on feet. For labs, patient reportslast a1c result: 9.2% (7.3%). For context, patient reportsnormal range of home blood sugars (in the low 100s),seeing eye doctor regularly,checking feet regularly,taking aspirin daily,not missing doses of medications, andno side effects from medications. Abdominal PainReported by PatientAbdominal PainFor quality, patient reportspain. For onset/timing, patient reportsworsebut reportswax/wane. For location, patient reportsruq. For severity, patient reportsmild. For duration, patient reportsintermittent. For modifying factors, patient reportsnothing gives reliefandnothing makes it worse. For associated symptoms, patient reportsno fever,no chills,no blood in the urine,no heartburn, andno shortness of breath. For other, patient reportsdenies possible .ROS as noted in the HPI I missed it for like 4 or 5 monthsI am having some pains every now and then In the interim she had an EGD and colonoscopy on 11/25/2024, she has been following up with her human resources records clerk and due to issues with the deductible she was off the Trulicity for 4-5 months. She presents with pain in the right upper quadrant of the abdomen she thinks it is a gallbladder the pain is on and off with no real relationship to meals. She plans to stop her Pantoprazole she read that he may have negative effects on her renal function Rommel Baptiste MD Attn: Accounting,[address] [facility], [place], [address], [facility] 01/13/2025 13:50:45 02/04/2025 text/html Diabetes F/URepo rted by PatientHPIFor associated symptoms, patient reportsweight gain (1 lbs)but reportsno weight loss,no dizziness,no sweats,no headaches,no confusion,no increased thirst,no increased appetite,no increased urination,no blurred vision,no numbness of feet, andno calluses on feet. For labs, patient reportslast a1c result: 7.6%. For context, patient reportsnormal range of home blood sugars (in the low 100s),seeing eye doctor regularly,checking feet regularly,taking aspirin daily,not missing doses of medications, andno side effects from medications.ROS as noted in the HPI What can I do about my fatty liver? Ms Ortega has discontinued her Metformin, she felt it was causing renal problems. Rommel Baptiste MD Attn: Accounting,[address] [facility], [place], [address], [facility] 02/04/2025 18:27:12 OBGyn Episode Ob Episode Information Episode Created Date Number of Fetuses Patient Bloodtype Patient rh Status Prepregnancy Weight lbs Domestic Partner Domestic Partner Phone Father Name Food Service Attendant Status 10/14/19 17 1 CLOSED Fetus Data First Name Last Name Admitted to NICU Weight (g) Sex Living Outcome Pediatric Complications Fetus ID Race Codes Race Delivery Type 2721.55 2 M Full Term [id number] Vaginal Jonathan Calculation Initial Jonathan Date Initial Exam Date Initial Exam Provider Initial Ultrasound Date Last Menstrual Period Date Ultra Sound Weeks Gestation 0 Eighteen To Twenty Week Jonathan Update Ultra Sound Date Fundal Height At Umbil Quickening Date Ultra Sound Latest Weeks Gestation Final Jonathan Confirmed By Final Jonathan Confirmed Date Final Jonathan Date Ultra Sound Latest Days Gestation 0 0 Menstrual History Last Menstrual Date Menses Monthly On Bcp Conception Prior Menses Frequency Hcg Plus Date Menarche Onset Age Delivery Information Delivery Date Delivery Type Labor Anesthesia Weeks Gestation Incision Type Labor Labor Length Hrs Delivered By Post Complications Tubal Sterilization Discharge Date Comments [address] [facility] Discharge Information Feeding Method Contraceptive Method Maternal HG B and HCT Levels
--- OUTSIDE RECORDS SUMMARY | 2025-03-06 10:32 | XMS_ITS | Clinical Summary ---
Author Organization [facility] [employer] Address [address] [place] [address] Care Team Providers Care Sales Representative Trainee Name Role Phone Unavailable Primary Care Provider Unavailabl e Source Comments [facility],non-owned Affiliates and Associated Physician Practices is amultiple site organization consisting of ambulatory clinics and hospital sitesin [place] and [place]. This disclosure is being madepursuant to the Care Everywhere program and may not contain all information available regarding this patient. Last updated 18.[facility] [employer] Allergies Active Allergy Reactions Criticality Noted Date Comments Azithromycin 08/17/2017 Medications * Be aware that medications may not be up to date on this document. Always verify current medications with the patient. CINNAMON PO Active BLACK COHOSH PO Acti ve MAGNESIUM CARBONATE PO Active CLONIDINE HCL PO Active SIMVASTATIN PO Activ e CHLORTHALIDONE PO Active METFORMIN HCL PO Active GLIMEPIRIDE PO Activ e LOSARTAN POTASSIUM PO Active RaNITidine HCl (ZANTAC PO) Active AmLODIPine Besylate (NORVASC PO) Active albuterol HFA (PROVENTIL;VENT BENJI;PROAIR) 108 (90 BASE) MCG/ACT inhalerIndicati ons:Acute bronchitis, unspecified organism Inhale 2 puffs by mouth every 4 hours as needed 1 Inhaler 8 Active dulaglutide (Trulicity) 1.5 MG/0.5ML injection Trulicity 1.5 mg/0.5 mL subcutaneous pen injector ADMINISTER 1.5 MG UNDER THE SKIN EVERY WEEK WITH A MEAL Active diphenhydrAMINE (Banophen) 25 MG capsule Banophen 25 mg capsule TAKE 1 CAPSULE BY MOUTH AT BEDTIME NEEDED Active empagliflozin (Jardiance) 10 MG tablet Jardiance 10 mg tablet Active fluticasone propionate (Flonase) 50 MCG/ACT nasal spray fluticasone propionate 50 mcg/actuation nasal spray,suspension SHAKE LIQUID AND USE 2 SPRAYS IN EACH NOSTRIL EVERY DAY Active LORazepam (Ativan) 1 MG tablet lorazepam 1 mg tablet TAKE 1 TABLET BY MOUTH 1 TO 2 HOURS PRIOR TO MRI Active omeprazole (PriLOSEC) 40 MG capsule omeprazole 40 mg capsule,delayed release Active potassium chloride ER (Klor-Con M) 20 MEQ tablet potassium chloride ER 20 mEq tablet,extended release Active Social History Tobacco Use Types Packs/Day Years Used Date Smoking Tobacco: Former Cigarettes Smokeless Tobacco: Never Comments No Sex and Gender Information Value Date Recorded Sex Assigned at Not on file Legal Sex Female 5:52 AM 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 Gender Identity Not on file Sexual Orientation Not on file Last Filed Vital Signs Vital Sign Reading Time Taken Comments Blood Pressure 132/70 10/06/2017 6: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 Pulse 66 10/06/2017 6: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 Temperature 36.8 C (98.2 F) 10/06/2017 6: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 Respiratory Rate 18 10/06/2017 6: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 Oxygen Saturation 97% 10/06/2017 6: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 Inhaled Oxygen Concentration - - Weight 71.7 kg (158 lb) 05/23/2023 1:52 PM CDT Height 156.2 cm (5' 1.5) 10/06/2017 6: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 Body Mass Index 29.37 10/06/2017 6: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 Plan of Treatment Health Maintenance Due Date Last Done Comments BONE DENSITY TESTING 1950 COLOGUARD (AGES 45-75) - COL ON CA SCREENING 1950 COLON MONITORING 1950 COLONOSCOPY - COLON CA SCREENING 1952 CT COLONOGRAPHY - COLON CA SCREENING 1950 Colorectal Cancer Screening 1950 FIT - COLON CA SCREENING 1950 FLEX SIG - COLON CA SCREENING 1950 MEDICARE AWV 12 MONTHS 1950 HEPATITIS C SCREENING 03/29/1970 DTAP/TDAP/TD VACCINES (1 - Tdap) 1971 PNEUMOCOCCAL VACCINE 50+ (1 of 1 - PCV) 2002 ZOSTER VACCINE (1 of 2) 2002 MAMMOGRAM 12/18/2010 12/18/2008 Respiratory Syncytial Virus (RSV) Vaccine Pt: or over 60 yrs (1 - Risk 60-74 years 1-dose series) 2012 COVID-19 VACCINE (3 - 2023-2 5 season) 2024 12/22/2020, 11/27/2020 DEPRESSION SCREENING 08/14/2024 INFLUENZA VACCINE (#1) 2025 06/01/2018 HEPATITIS B VACCINE Aged Out No longe r eligible based on patient's age to complete this topic HIB VACCINE Aged Out No longer eligi ble based on patient's age to complete this topic HPV VACCINE Aged Out No longer eligi ble based on patient's age to complete this topic MENINGOCOCCAL (Group B) VACCINE SHARED DECISION-MAKING Aged Out No longer eligible based on patient's age to complete this topic MENINGOCOCCAL GROUPS A/C/Y/W VACCINE Aged Out No longer eligible b ased on patient's age to complete this topic Procedures Procedure Name Priority Date/Time Associated Diagnosis Comments MAMMO BILAT SCREENING Routine 12/18/2008 10:54 AM CDT Other Screening Mammogram from Last 3 Months or Most Recently Relevant to Health Maintenance Results * MAMMO SCREENING DIGITAL IMAGE BILAT (12/18/2008 10:54 AM CDT) Anatomical Region Laterality Modality Breast Bilateral Other 12/18/2008 10:5 4 AM CDT Narrative 12/22/2008 10:03 AM CDT Original Report EXAM- BILATERAL DIGITAL SCREENING MAMMOGRAPHY WITH CAD VERSION 7.2 PREVIOUS EXAM DATE- 03/13/07. CLINICAL INFORMATION- Routine screening. Mother and aunt had breast cancer. TECHNICAL INFORMATION- Bilateral craniocaudad (CC) and mediolateral oblique (MLO) digital views were obtained. These images were interpreted with the aid of the Second Look CAD. TECHNOLOGIST- Meka, RT TISSUE DENSITY- Average. INTERPRETATION- There are a number of well-marginated nodular densities in the left breast, similar to the previous study. IMPRESSION- Negative. ASSESSMENT- BI-RADS 1- Negative. RECOMMENDATIONS- Routine followup in one year. The above findings should be correlated with physical examination. A relatively nonspecific study should not preclude additional evaluation if suspicious findings are present clinically. EE-js/tds This examination was reviewed with Second LookTM CAD version 7.2. Read By- BALDEV ECHAVARRIA M.D. Released By- BALDEV ECHAVARRIA M.D. Released Date Time- 12/22/08 1002 DORA ALVES- DORA BOSTON REF- CON- PCPDORA MEREDITH SCP- Procedure Note Baldev Echavarria - 12/22/2008 Original Report EXAM- BILATERAL DIGITAL SCREENING MAMMOGRAPHY WITH CAD VERSION 7.2 PREVIOUS EXAM DATE- 03/13/07. CLINICAL INFORMATION- Routine screening. Mother and aunt had breast cancer. TECHNICAL INFORMATION- Bilateral craniocaudad (CC) and mediolateraloblique (MLO) digital views were obtained. These images were interpreted with the aid of the [employer] Look CAD. TECHNOLOGIST- Meka, RT TISSUE DENSITY- Average. INTERPRETATION- There are a number of well-marginated nodular densitiesin the left breast, similar to the previous study. IMPRESSION- Negative. ASSESSMENT- BI-RADS 1- Negative. RECOMMENDATIONS- Routine followup in one year. The above findings should be correlated with physical examination. A relatively nonspecific study should not preclude additional evaluation if suspicious findings are present clinically. Ana/eulalia This examination was reviewed with [employer] CAD version 7.2. Read By- BALDEV ECHAVARRIA M.D. Released By- BALDEV ECHAVARRIA M.D. Released Date Time- 12/22/08 1002 ADM- DORA BOSTON ATT- DORA BOSTON REF- CON- PCP- DORA BOSTON SCP- Dora [place] MAMMO ORDERABLES Final Result from Last 3 Months or Most Recently Relevant to Health Maintenance [place] [phone] MEDICARE MEDICAID - OUT OF STATE
--- OUTSIDE RECORDS SUMMARY | 2025-03-06 10:32 | XMS_ITS | Data Portability ---
Author Organization [place] [facility] [employer] [facility] [place], Main Office Address [address] [place] [address] Care Team Providers Care Nurse Tech Name Role Phone ROMMEL BAPTISTE Primary Care Provider ROMMEL BAPTISTE Referring Provider ROMMEL BAPTISTE Primary Care Provider [phone] ZACH CLARK Spout Tender Assessment Encounter Date Assessment Date Assessment LastModified by Organization Details LastModified Time 11/18/2024 11/18/2024 74-year-old uzair vogt presents for follow-up of her right knee. She has a history of knee arthritis. We did injection for her at the beginning of July. She reports that did help. She is still taking meloxicam and doing exercises at home. She is having pain and swelling rates a 7/10. Physical exam: She has some tenderness over the patella and also over the joint line. Range of motion 5-130. Antalgic gait favoring the right side For her knee arthritis, we will continue conservative management. A since the meloxicam did not really help we will switch her over to Celebrex. We discussed a repeat cortisone injection which she wanted to hold off on, and she will call when she is ready to get that done. [email or web address] Not available 11/18/2024 13:08:33 12/16/2024 12/16/2024 Assessment: Mild COPD (ex-smoker quit 2017, 19.2 pack years) RLL pulmonary nodule, stable since 2019 Elevated IgE with multiple environmental allergies Plan: The following were reviewed and explained to the patient: Lab data 02/25/21 elevated IgE, multiple environmental allergies Chest CT 02/27/20 RLL 6.[address] 04/30/21 RLL 6.[address] 06/23/22 RLL 6.5 mm nodule PFT 06/24/21 FEV1 1.74 L (100%) PFT 06/23/22 FEV1 1.75 L (104%) PFT 08/03/23 FEV1 1.57 L (96%) PFT 12/16/24 FEV1 1.46 L (90%) Fleischner Society pulmonary nodule recommendations: 1. Pulmonary nodule less than or equal to 4 mm: No follow-up needed in low risk patient. Follow-up at 12 months in high-risk patient. If no change, no further imaging needed. 2. 4-6 mm: Follow-up at 12 months in a low risk patient. If no change, no further imaging needed. Initial follow-up CT at 6 to 12 months and then at 18 to 24 months if no change in high-risk patient. 3. 6-8 mm: Initial follow-up CT at 6 to 12 months and then at 18 to 24 months if no change in low-risk patient. 4. >8 mm: Follow-up CT at around 3, 9 and 24 months. Dynamic contrast enhanced CT, PET, and or biopsy in low risk patient. Same as low risk patient in high-risk patient. No further chest CT as pulmonary nodule has been stable over 2 years. Advised to continue not to smoke. General information on COPD was covered. COPD affects breathing. Self-care skills such as not smoking, using medications as prescribed, oxygen therapy, and knowing when to contact the healthcare provider are covered. Diaphragmatic breathing and pursed lip breathing are explained and demonstrated. Positive lifestyle changes are introduced. Following these self-care skills will help in the management of COPD so the patient can stay out of the hospital. Continue albuterol HFA as needed. The patient does not know how to accurately administer the inhaler. Today, the patient was shown how to take this medication. The proper technique for delivering this medication was instructed. The patient expressed a clear understanding and demonstrated back how to use this medication. Without the proper technique, the patient will not reap the benefits of this medication as the contents will not reach the lower airways as intended to be. Adherence to therapy is advocated. Nonadherence may lead to treatment failure, further progression of the condition, and other complications. Hospitals admissions are often the result of individuals not taking prescription medications accurately. Alternatively, greater adherence to medication regimens have shown to lower rates of hospitalization and decrease total medical costs in patients with chronic medical conditions. Advocated influenza vaccination annually and pneumonia vaccination NIMISHA. Advocated weight loss through diet and exercise. Patient's ideal body weight according to height and gender is up to 115 lbs. Encouraged patient to adjust caloric intake to maintain/achieve ideal body weight, emphasizing on fruits, vegetables, whole grains, and fat-free or low-fat products. These include lean meats, poultry, fish, beans, eggs, and nuts and foods that are low in saturated fats, trans-fats, cholesterol, salt (sodium), and glycemic index. Stressed the importance of regular exercise up to the patient's capacity limits. In this case, we recommend 20 min daily walking, 2 days a week of resistance training. Patient to monitor BP daily and bring records to PCP for further management. Follow-up: 1 year, December 2025 Not available 12/16/2024 10:34:18 02/13/2025 02/13/2025 Assessment: Mild COPD (ex-smoker quit 2017, 19.2 pack years) RLL pulmonary nodule, stable since 2019 Elevated IgE with multiple environmental allergies Plan: The following were reviewed and explained to the patient: Lab data 02/25/21 elevated IgE, multiple environmental allergies Chest CT 10/10/19 RLL 6.[address] 04/30/21 RLL 6.[address] 06/23/22 RLL 6.[address] 01/31/25 RLL 8 mm nodule PFT 06/24/21 FEV1 1.74 L (100%) PFT 06/23/22 FEV1 1.75 L (104%) PFT 08/03/23 FEV1 1.57 L (96%) PFT 12/16/24 FEV1 1.46 L (90%) Fleischner Society pulmonary nodule recommendations: 1. Pulmonary nodule less than or equal to 4 mm: No follow-up needed in low risk patient. Follow-up at 12 months in high-risk patient. If no change, no further imaging needed. 2. 4-6 mm: Follow-up at 12 months in a low risk patient. If no change, no further imaging needed. Initial follow-up CT at 6 to 12 months and then at 18 to 24 months if no change in high-risk patient. 3. 6-8 mm: Initial follow-up CT at 6 to 12 months and then at 18 to 24 months if no change in low-risk patient. 4. >8 mm: Follow-up CT at around 3, 9 and 24 months. Dynamic contrast enhanced CT, PET, and or biopsy in low risk patient. Same as low risk patient in high-risk patient. PET/CT scan NIMISHA. Advised to continue not to smoke. General information on COPD was covered. COPD affects breathing. Self-care skills such as not smoking, using medications as prescribed, oxygen therapy, and knowing when to contact the healthcare provider are covered. Diaphragmatic breathing and pursed lip breathing are explained and demonstrated. Positive lifestyle changes are introduced. Following these self-care skills will help in the management of COPD so the patient can stay out of the hospital. Continue albuterol HFA as needed. The patient does not know how to accurately administer the inhaler. Today, the patient was shown how to take this medication. The proper technique for delivering this medication was instructed. The patient expressed a clear understanding and demonstrated back how to use this medication. Without the proper technique, the patient will not reap the benefits of this medication as the contents will not reach the lower airways as intended to be. Adherence to therapy is advocated. Nonadherence may lead to treatment failure, further progression of the condition, and other complications. Hospitals admissions are often the result of individuals not taking prescription medications accurately. Alternatively, greater adherence to medication regimens have shown to lower rates of hospitalization and decrease total medical costs in patients with chronic medical conditions. Advocated influenza vaccination annually and pneumonia vaccination NIMISHA. Advocated weight loss through diet and exercise. Patient's ideal body weight according to height and gender is up to 115 lbs. Encouraged patient to adjust caloric intake to maintain/achieve ideal body weight, emphasizing on fruits, vegetables, whole grains, and fat-free or low-fat products. These include lean meats, poultry, fish, beans, eggs, and nuts and foods that are low in saturated fats, trans-fats, cholesterol, salt (sodium), and glycemic index. Stressed the importance of regular exercise up to the patient's capacity limits. In this case, we recommend 20 min daily walking, 2 days a week of resistance training. Patient to monitor BP daily and bring records to PCP for further management. Follow-up: 1 week after PET/CT scan Not available 02/13/2025 14:18:32 Plan of Treatment Reminders Order Date Submit Date Provider Last Modified By Organization Details Last Modified Time Details Appointments [facility] Patient 15 2024 01:30P M Janet Hendricks MD Not available Not available Not available [facility] Patient 15 2024 03:30P M Kemar Cruz DPM Not available Not available Not available Lab None recorded . Referral None recorded . Procedures colonosc opy screenin g (PROC) 2024 025 [facility] (Pre-Screen), [address] [place], [address], 11/25/2024 13:43:22 upper endoscop y procedur e (EGD) (PROC) 2024 025 [facility] (Pre-Screen), [address] [place], [address], 11/25/2024 13:43:04 Surgeries None recorded . Imaging PET-CT, skull base to mid-thig h scan - Please call patient to schedule . Note from provider : RLL 8 mm nodule 2024 025 [facility], [address], [place], [address], 02/13/2025 15:07:58 Medication Orders albutero l sulfate HFA 90 mcg/actu ation aerosol inhaler 2024 025 [facility], [address] 452249, [place], [address], 02/13/2025 14:19:23 albutero l sulfate HFA 90 mcg/actu ation aerosol inhaler 2024 025 [facility], [address]68448, [place], [address], 12/16/2024 10:36:24 Celebrex 200 mg capsule [address] [id number], [address], [place], [place], [id number], 12/16/2024 10:03:35 Golilene 236 gram-22. 74 gram-6.7 4 gram-5.8 6 gram oral solution 2024 025 [id number], [address], [place], [place], [id number], 11/30/2024 15:54:06 Patient TargetsNo targets recorded. Patient Instructions Encounter Date Encounter Id Patient Instructions Last Modified By Organization Details Last Modified Time 10/09/2024 [id number] RACH [email or web address] Not available 11:40:48 PT NEEDS A SCREENING COLON . R/O POLYP . RECOMMEND A COLONOSOPY . . Risks benefits and complications were explained to the pt. ( BLEEDING PERFORATION , INFECTION , ). PT VERBALIZES UNDERSTANDING AND IS WILLING TO PROCEDE . PT WITH HALITOSIS. DM POOR CONTROL . .RECOMMEND AN EGD . . Risks benefits and complications were explained to the pt. ( BLEEDING PERFORATION , INFECTION , ). PT VERBALIZES UNDERSTANDING AND IS WILLING TO PROCEDE . [email or web address] Not available 10/09/2024 12:06:51 12/16/2024 [id number] complete PFT w/ post bronchodilator spirometry* Not available 12/16/2024 10:31:59 Reason for Referral None Reported. Results Created Date Observation Date Name Description Value Unit Range Abnormal Flag Note LastModifiedBy Organization Detail LastModifiedTime 08/06/20 24 08/06/2024 CBC W/O DIFFE RENTI AL white blood cells 3.2 x10'3 /uL 4.2-10 .8 low Not Available [facility] (Lab) [address] [place], [address], 08/06/2024 12:27:20 08/06/20 24 08/06/2024 CBC W/O DIFFE RENTI AL red blood cells 4.84 x10'6 /uL 3.80-5 .20 Not Available [facility] (Lab) [address] [place], [address], 08/06/2024 12:27:20 08/06/20 24 08/06/2024 CBC W/O DIFFE RENTI AL hemoglobin 11.7 g/dL 12.0-1 5.6 low Not Available [facility] (Lab) [address] [place], [address], 08/06/2024 12:27:20 08/06/20 24 08/06/2024 CBC W/O DIFFE RENTI AL hematocrit 35.6 % 35.7-4 5.7 low Not Available [facility] (Lab) [address] [place], [address], 08/06/2024 12:27:20 08/06/20 24 08/06/2024 CBC W/O DIFFE RENTI AL mean red cell volume 73.6 fL 82.0-9 9.0 low Not Available [facility] (Lab) [address] [place], [address], 08/06/2024 12:27:20 08/06/20 24 08/06/2024 CBC W/O DIFFE RENTI AL mean red cell hemoglobin 24.2 pg 27.0-3 3.0 low Not Available [facility] (Lab) [address] [place], [address], 08/06/2024 12:27:20 08/06/20 24 08/06/2024 CBC W/O DIFFE RENTI AL mean RBC HGB concentratio n 32.9 g/dL 31.0-3 6.0 Not Available [facility] (Lab) [address] [place], [address], 08/06/2024 12:27:20 08/06/20 24 08/06/2024 CBC W/O DIFFE RENTI AL red cell distribution width 15.0 % 11.8-1 5.5 Not Available [facility] (Lab) [address] [place], [address], 08/06/2024 12:27:20 08/06/20 24 08/06/2024 CBC W/O DIFFE RENTI AL platelets 386 x10'3 /uL 150-40 0 Not Available [facility] (Lab) [address] [place], [address], 08/06/2024 12:27:20 08/06/20 24 08/06/2024 CBC W/O DIFFE RENTI AL mean platelet volume 8.6 fL 9.0-12 .4 low Not Available [facility] (Lab) [address] [place], [address], 08/06/2024 12:27:20 08/16/19 25 08/16/2024 GLUCO SE (POIN T OF CARE) glucose (point of care) 191 mg/dL 74-99 high Not Available [facility] (Lab) [address] [place], [address], 08/16/2024 12:39:30 08/16/19 25 08/16/2024 GLUCO SE (POIN T OF CARE) glucose (point of care) 178 mg/dL 74-99 high Not Available [facility] (Lab) [address] [place], [address], 08/16/2024 14:23:50 12/17/19 25 12/16/2024 compl ete PFT w/ post [facility] hodil ator stephen metry * No observ ation record ed. BARCODE [facility] [place] ([facility]) [address] [place], [address], 12/16/2024 17:54:27 02/06/20 25 01/31/2025 CT, angio gram, abdom en, w/ contr ast No observ ation record ed. BARCODE Not Available 2024 11:25:19 Result Notes None recorded. Problems Name Problem SNOMED Code Status Onset Date Resolution Date Notes Provider Name and Address Organization Details Recorded Time Back problem 848098678 Completed Not Available [facility] 3 00:58:22 Arthropat hy of joint of hand 359277171 Active Stephan Momin MD [address], [place], [address] , [facility]ker 5 14:30:48 Type 2 diabetes mellitus 81992846 Active 2018 Stephan Momin MD [address], [place], [address] , [employer] 5 14:30:23 Dyslipide melo 235115874 Active 2021 Stephan Momin MD [address], [place], [address] , [employer] 5 14:30:57 Mild chronic obstructi ve pulmonary disease 306567490 Active 2021 Stephan Momin MD [address], [place], [address] , [employer] 5 14:30:54 Solitary nodule of lung 726157059 Active 2021 Stephan Momin MD [address], [place], [address] , [employer] 5 14:30:25 Gastroeso phageal reflux disease 603014059 Active 2022 Stephan Momin MD [address], [place], [address] , [employer] [facility] 5 14:31:00 Osteoarth ritis of right knee joint 18787842830 9100 Active 2023 Sienna Reed PA-C [address], [place], [address] , Mozy [facility] [employer] [facility] [place] 4 15:16:10 Posterior rhinorrhe a 83801358 Active 2024 Stephan Momin MD [address], [place], [address] , [facility] Draker 14:30:28 Notes:Medical History: Anxie ty Rhinitis to multiple environmental allergens with postnasal drip Eosinophils 50/uL IgE 679 Iu/mL Alpha-1 antitrypsin PiMM 120 mg% Mild COPD Stable RLL 6.5 mm nodule since 2016 Calcified GABBI granuloma, mediastinal and bilateral hilar LNs Obesity Hypertension Hyperlipidemia T2DM SHANTANU Hepatic steatosis Bilateral adrenal nodules Left renal inferior pole 9 mm angiomyolipoma Vit D deficiency Cervicothoracic DDD Right hand osteoarthritis Procedure History: KELLY 1982 Umbilical herniorrhaphy 1992 Occupational History: Retired hostess cashier Problem Notes None recorded. Procedures Surgical History Date Name Laterality Status Provider Name and Address Organization Details Recorded Time 08/16/19 25 ENDOSCOPY, NASAL/SINUS, W/ MAXILLARY ANTROSTOMY & TISSUE REMOVAL (SURG) completed Cynthia Guzman RN [facility] [employer] [facility] 08/28/2024 08:38:46 07/15/20 24 Corticosteroid Injection completed Sienna Reed PA-C [address], [place], [address], [facility] [employer] [facility] 07/15/2024 15:09:56 01/02/20 24 Nail Debridement completed Kemar Cruz DPM [address], [place], [address], [employer] [facility] [employer] [facility] 01/03/2024 09:48:44 06/23/20 23 Ortho - Cortisone Injection completed Kristina Hector NP [address], [place], [address], [facility] [employer] [facility] [employer] [facility] 06/23/2023 10:41:29 Hysterectomy, Partial completed Not Available [facility] 10/12/2022 00:52:04 Hernia Surgery completed Not Available [facility] 10/12/2022 00:52:04 nasal endoscopy with maxillary antrostomy completed Cynthia Guzman RN [facility] [employer] [facility] 08/28/2024 08:33:13 Imaging Results None recorded. Procedure Notes None recorded. Medical Equipment None Reported. Allergies Allergen ID Allergen Name Allergen Category Reaction Reaction Severity Criticality Documentation Date Start Date Code Code System Note Provider Name and Address Organization Details Recorded Time 1526 Zithromax medicatio n Not available Not available Not available 10/12/2022 84220 4 RxNorm Not Available [facility] 3 01:07:16 1527 azithromy manish medicatio n Not available Not available Not available 10/12/2022 88753 RxNorm Not Available [facility] 3 01:07:16 Medications Name Sig Start Date Stop Date Status Note LastModified by Organization Details LastModified Time celecoxib 200 mg capsule TAKE 1 CAPSULE BY MOUTH EVERY DAY 12/16 completed Not Available Not Available Not Available cyclobenzap rine 10 mg tablet TAKE 1/2 TO 1 TABLET BY MOUTH TWICE DAILY 03/13 completed Not Available Not Available Not Available amoxicillin 500 mg capsule 05/16 completed Not Available Not Available Not Available methocarbam ol 500 mg tablet TK 2 TS PO Q 6 H PRN FOR MUSCLE SPAMS 10/15 completed Not Available Not Available Not Available neomycin-po lymyxin-hyd rocort 3.5 mg/mL-10,00 0 unit/mL-1 % ear solution INSTILL 4 DROPS INTO BOTH EARS THREE TIMES DAILY FOR 10 DAYS 11/29 completed Not Available Not Available Not Available clonidine HCl 0.1 mg tablet TAKE 1 TABLET BY MOUTH EVERY EVENING active Not Available Not Available No t Available doxycycline hyclate 100 mg capsule 05/16 completed Not Available Not Available Not Available cefuroxime axetil 250 mg tablet 05/16 completed Not Available Not Available Not Available cetirizine 10 mg tablet TK 1 T PO DAILY 05/05 completed Not Available Not Available Not Available ibuprofen 800 mg tablet TAKE 1 TABLET BY MOUTH EVERY 6 TO 8 HOURS NEEDED 06/23 completed Not Available Not Available Not Available ofloxacin 0.3 % eye drops 05/16 completed Not Available Not Available Not Available fluconazole 150 mg tablet TK 1 T PO once , can take up to once weekly x 4 weeks to clear infection 06/23 completed Not Available Not Available Not Available benzonatate 200 mg capsule 05/16 completed Not Available Not Available Not Available hydrocodone 5 mg-acetamin ophen 325 mg tablet 10/09 completed Not Available Not Available Not Available fluconazole 200 mg tablet TAKE 1 TABLET BY MOUTH NOW AND 72 HOURS LATER 05/02 completed Not Available Not Available Not Available meloxicam 15 mg tablet Take 1 tablet by mouth every day as needed active Not Available Not Available No t Available phenazopyri dine 200 mg tablet TAKE 1 TABLET BY MOUTH THREE TIMES DAILY 11/29 completed Not Available Not Available Not Available metronidazo le 0.75 % (37.5 mg/5 gram) vaginal gel 05/16 completed Not Available Not Available Not Available bupivacaine HCl 0.5 % (5 mg/mL) injection solution Take 4 mL by injection route. 07/17 completed Not Available Not Available Not Available prednisone 20 mg tablet TAKE 1 TABLET BY MOUTH EVERY DAY FOR 5 DAYS 07/15 completed Not Available Not Available Not Available terconazole 0.8 % vaginal cream active Not Available Not Available Not Available black cohosh 540 mg capsule Take by oral route. 10/15 completed Not Available Not Available Not Available penicillin V potassium 500 mg tablet TK 1 T PO QID TAT 10/15 completed Not Available Not Available Not Available metronidazo le 500 mg tablet TAKE 1 TABLET BY MOUTH TWICE DAILY 05/02 completed Not Available Not Available Not Available nizatidine 150 mg capsule 10/15 completed Not Available Not Available Not Available acetaminoph en 300 mg-codeine 30 mg tablet 10/09 completed Not Available Not Available Not Available chlorthalid one 25 mg tablet TAKE 1 TABLET BY MOUTH DAILY active Not Available Not Available No t Available amlodipine 5 mg tablet TAKE 1 TABLET BY MOUTH EVERY DAY 06/18 completed Not Available Not Available Not Available ciprofloxac in 500 mg tablet 05/16 completed Not Available Not Available Not Available sulfamethox azole 800 mg-trimetho prim 160 mg tablet 05/16 completed Not Available Not Available Not Available peg-electro lyte solution 420 gram oral solution 05/16 completed Not Available Not Available Not Available omeprazole 40 mg capsule,del ayed release active Not Available Not Available Not Available aspirin 81 mg tablet,luis armando yed release TAKE 1 TABLET BY MOUTH EVERY DAY DIRECTED FOR 30 DAYS FOR CV PROTECTIO N active Not Available Not Available No t Available tramadol 50 mg tablet TAKE 1 TABLET BY MOUTH EVERY 8 HOURS NEEDED 10/09 completed Not Available Not Available Not Available triamcinolo ne acetonide 0.1 % topical cream APPLY TOPICALLY TO THE AFFECTED AREA EVERY DAY FOR 14 DAYS NEEDED FOR ITCHY RASH 07/15 completed Not Available Not Available Not Available amoxicillin 500 mg tablet 05/16 completed Not Available Not Available Not Available glimepiride 2 mg tablet active Not Available Not Available Not Available glimepiride 1 mg tablet TAKE 1 TABLET BY MOUTH D WITH A MEAL 05/16 completed Not Available Not Available Not Available meloxicam 7.5 mg tablet 10/15 completed Not Available Not Available Not Available ofloxacin 0.3 % ear drops INSTILL 4 DROPS INTO AFFECTED EAR(S) BY OTIC ROUTE TWICE DAILY FOR 10 DAYS. 02/05 completed Not Available Not Available Not Available potassium chloride 20 mEq oral packet 10/15 completed Not Available Not Available Not Available potassium chloride ER 20 mEq tablet,exte nded release(par t/cryst) TK 1 T PO BID 05/16 completed Not Available Not Available Not Available famotidine 20 mg tablet TAKE 1 TABLET BY MOUTH EVERY 12 HOURS FOR 10 DAYS 10/09 completed Not Available Not Available Not Available repaglinide 0.5 mg tablet TAKE 1 TABLET BY MOUTH THREE TIMES DAILY BEFORE MEALS 08/17 completed Not Available Not Available Not Available OneTouch Ultra Test strips TEST TWICE DAILY DIRECTED 11/30 completed Not Available Not Available Not Available Kenalog 10 mg/mL suspension for injection Take 1 mL by injection route. 07/17 completed [facility]: [phone] Not Available Not Available Not Available phenazopyri dine 100 mg tablet TAKE 1 TABLET BY MOUTH THREE TIMES DAILY 06/23 completed Not Available Not Available Not Available amlodipine 10 mg tablet TAKE 1 TABLET BY MOUTH EVERY DAY DIRECTED active Not Available Not Available No t Available benzonatate 100 mg capsule TK 1 TO 2 CS PO TID 05/16 completed Not Available Not Available Not Available hydrocodone 7.5 mg-acetamin ophen 325 mg tablet 10/09 completed Not Available Not Available Not Available cephalexin 500 mg capsule TK 1 C PO Q 12 H 05/16 completed Not Available Not Available Not Available pantoprazol e 40 mg tablet,luis armando yed release TAKE 1 TABLET BY MOUTH EVERY DAY DIRECTED active Not Available Not Available No t Available simvastatin 20 mg tablet TAKE 1 TABLET BY MOUTH DAILY active Not Available Not Available No t Available metformin 1,000 mg tablet TAKE 1 TABLET BY MOUTH TWICE DAILY active Not Available Not Available No t Available nystatin 100,000 unit/gram topical cream APPLY EXTERNALL Y TO THE AFFECTED AREA TWICE DAILY 02/16 completed Not Available Not Available Not Available ranitidine 150 mg tablet TK 1 T PO BID 10/15 completed Not Available Not Available Not Available glimepiride 4 mg tablet TAKE 1 TABLET BY MOUTH TWICE DAILY WITH MEALS 10/09 completed Not Available Not Available Not Available lidocaine 5 % topical patch APPLY 1 PATCH TOPICALLY DAILY AND LEAVE ON MOST PAINFULAR EA FOR UP TO 12 HOURS 08/03 completed Not Available Not Available Not Available Banophen 25 mg capsule TAKE 1 CAPSULE BY MOUTH AT BEDTIME NEEDED 02/13 completed Not Available Not Available Not Available etodolac 400 mg tablet 05/16 completed Not Available Not Available Not Available ranitidine 150 mg capsule 05/16 completed Not Available Not Available Not Available ergocalcife rol (vitamin D2) 1,250 mcg (50,000 unit) capsule TAKE 1 CAPSULE BY MOUTH WEEKLY active Not Available Not Available No t Available lorazepam 1 mg tablet TAKE 1 TABLET BY MOUTH 1 TO 2 HOURS PRIOR TO MRI 06/23 completed Not Available Not Available Not Available levofloxaci n 750 mg tablet 05/16 completed Not Available Not Available Not Available methylpredn isolone 4 mg tablets in a dose pack FOLLOW PACKAGE DIRECTION S 05/02 completed Not Available Not Available Not Available albuterol sulfate HFA 90 mcg/actuati on aerosol inhaler INHALE 1 PUFF BY MOUTH EVERY 4 HOURS NEEDED 2024 active Not Available Not Available Not Avai lable ipratropium bromide 42 mcg (0.06 %) nasal spray USE 2 SPRAYS IN EACH NOSTRIL TWICE DAILY active Not Available Not Available No t Available cefdinir 300 mg capsule Take 1 capsule every 12 hours by oral route for 10 days. 07/17 completed Not Available Not Available Not Available losartan 100 mg tablet TAKE 1 TABLET BY MOUTH ONCE DAILY active Not Available Not Available No t Available fluticasone propionate 50 mcg/actuati on nasal spray,suspe nsion SHAKE LIQUID AND USE 2 SPRAYS IN EACH NOSTRIL EVERY DAY 07/15 completed Not Available Not Available Not Available metformin ER 500 mg tablet,exte nded release 24 hr Take 2 tablets every day by oral route for 90 days. 11/29 completed Not Available Not Available Not Available doxycycline hyclate 100 mg tablet TAKE 1 TABLET BY MOUTH TWICE DAILY 03/13 completed Not Available Not Available Not Available naproxen 500 mg tablet TAKE 1 TABLET BY MOUTH TWICE DAILY. WITH FOOD 05/02 completed Not Available Not Available Not Available mometasone 0.1 % topical cream APPLY THIN LAYER TOPICALLY TO THE AFFECTED AREA EVERY DAY 07/17 completed Not Available Not Available Not Available metoclopram mati 10 mg tablet TAKE 1 TABLET BY MOUTH 30 MINUTES BEFORE MEALS AND AT BEDTIME 06/23 completed Not Available Not Available Not Available amoxicillin 875 mg-potassiu m clavulanate 125 mg tablet TK 1 T PO BID WF TAT 10/15 completed Not Available Not Available Not Available neomycin 3.5 mg/g-polymy lupe B 10,000 unit/g-dexa meth 0.1 % eye oint APPLY A SMALL AMOUNT TO BOTH EYES ONCE DAILY 11/29 completed Not Available Not Available Not Available Pneumovax-2 3 25 mcg/0.5 mL injection syringe ADM 0.5ML IM UTD 05/16 completed Not Available Not Available Not Available Ventolin 90 mcg/actuati on aerosol inhaler Inhale by inhalatio n route. 07/17 completed Not Available Not Available Not Available cyclobenzap rine 5 mg tablet 05/16 completed Not Available Not Available Not Available Ciprodex 0.3 %-0.1 % ear drops,suspe nsion INSTILL 4 DROPS INTO AFFECTED EAR(S) BY OTIC ROUTE 2 TIMES PER DAY FOR 7 DAYS 05/02 completed Not Available Not Available Not Available rosuvastati n 10 mg tablet 05/16 completed Not Available Not Available Not Available nitrofurant oin monohydrate /macrocryst als 100 mg capsule TAKE 1 CAPSULE BY MOUTH TWICE DAILY 06/23 completed Not Available Not Available Not Available Cinnamon 500 mg capsule Take 1 capsule twice a day by oral route. 02/16 completed Not Available Not Available Not Available Boudreauxs Butt Paste 16 % topical ointment APPLY TOPICALLY NEEDED 05/05 completed Not Available Not Available Not Available sildenafil (bulk) 100 % powder apply thin layer to clitoris and vaginal opening before intercour se 11/29 completed Not Available Not Available Not Available Boostrix Tdap 2.5 Lf unit-8 mcg-5 Lf/0.5 mL intramuscul ar syringe active Not Available Not Available N ot Available magnesium 400MG BID 08/09 completed Not Available Not Available Not Available Januvia 50 mg tablet Take 1 tablet every day by oral route in the morning for 30 days. 06/07 completed Not Available Not Available Not Available GaviLyte-G 236 gram-22.74 gram-6.74 gram-5.86 gram oral solution MIX AND DRINK DIRECTED 11/30 completed Not Available Not Available Not Available Prevnar 13 (PF) 0.5 mL intramuscul ar syringe 05/16 completed Not Available Not Available Not Available Tradjenta 5 mg tablet TK 1 T PO QAM 10/15 completed Not Available Not Available Not Available Farxiga 10 mg tablet TAKE 1 TABLET BY MOUTH EVERY DAY IN THE MORNING 05/05 completed Not Available Not Available Not Available potassium chloride ER 20 mEq tablet,exte nded release TAKE 2 TABLETS BY MOUTH EVERY DAY DIRECTED 02/05 completed Not Available Not Available Not Available Jardiance 10 mg tablet TK 1 T PO QD active Not Available Not Available No t Available Trulicity 1.5 mg/0.5 mL subcutaneou s pen injector ADMINISTE R 1.5 MG UNDER THE SKIN 1 TIME A WEEK 10/09 completed Not Available Not Available Not Available Trulicity 0.75 mg/0.5 mL subcutaneou s pen injector Inject 0.5 mL every week by subcutane ous route with meals for 14 days. 10/15 completed Not Available Not Available Not Available Belsomra 5 mg tablet TAKE 1 TABLET BY MOUTH EVERY DAY AT BEDTIME 08/09 completed Not Available Not Available Not Available OneTouch Ultra2 Meter USE DIRECTED 02/16 completed Not Available Not Available Not Available OneTouch Delica Plus Lancet 33 gauge USE TWICE DAILY 07/17 completed Not Available Not Available Not Available Fluad 2018- 65yr up(PF)45 mcg(15 mcgx3)/0.5 mL intramuscul ar syringe ADM 0.5ML IM UTD 02/16 completed Not Available Not Available Not Available Trulicity 3 mg/0.5 mL subcutaneou s pen injector INJECT SUBCUTANE OUS 3MG ONCE A WEEK 05/02 completed Not Available Not Available Not Available Vitals Date Recorded Body height Body mass index (BMI) Body weight Body temperature Provider Name and Address Organization Details Last Updated DateTime 08/28/2024 156.21 cm 29.9 kg/m2 62297.37 g 98 [degF] Cynthia Guzman RN [facility] [employer] [facility] [place] 08/28/2024 11:56:37 Date Recorded Body height Body mass index (BMI) Body weight Heart rate Oxygen saturation Oxygen saturation in Arterial blood by Pulse oximetry Systolic And Diastolic Provider Name and Address Organization Details Last Updated DateTime 156.21 cm 30.3 kg/m2 83081.5 6 g 97 /min 98 % 98 % 138/74 mm[Hg] Bela Cox Maximilian [place] [facility] [employer] [facility] [place] 11:42:37 Date Recorded Body height Body mass index (BMI) Body weight Pain severity - 0-10 verbal numeric rating [Score] - Reported Provider Name and Address Organization Details Last Updated DateTime 11/18/2024 156.21 cm 30.5 kg/m2 53008.15 g 7 Desiree Bauman Maximilian [place] [facility] [place] [employer] [facility] [place] 11/18/2024 11:46:58 Date Recorded Heart rate Respiratory rate Provider Gris maggi and Address Organization Details Last Updated DateTime 12/16/2024 77 /min 15 /min Stephan Momin MD [address] [facility] [address], [place], [address], [place] [employer] [employer] [facility] [place] 12/16/2024 10:27:05 Date Recorded Body height Body mass index (BMI) Body weight Body temperature Heart rate Oxygen saturation Oxygen saturation in Arterial blood by Pulse oximetry Systolic And Diastolic Provider Name and Address Organization Details Last Updated DateTime 156.21 cm 31 kg/m2 13483.9 3 g 98.3 [degF] 77 /min 98 % 98 % 122/70 mm[Hg] Clau Robison MA [facility] [employer] 10:09:01 Date Recorded Heart rate Respiratory rate Provider Gris jaye and Address Organization Details Last Updated DateTime 02/13/2025 83 /min 15 /min Stephan Momin MD [address] [facility] [facility] [address], [place], [address], [facility] [employer] 02/13/2025 14:19:54 Date Recorded Body height Body mass index (BMI) Body weight Body temperature Heart rate Oxygen saturation Oxygen saturation in Arterial blood by Pulse oximetry Systolic And Diastolic Provider Name and Address Organization Details Last Updated DateTime 156.21 cm 29.2 kg/m2 23543 g 98.3 [degF] 83 /min 98 % 98 % 128/74 mm[Hg] Clau Robison MA [facility] [employer] 14:20:32 Social History Question Answer Notes LastModified by Organizat ion Details LastModified Time Tobacco Smoking Status Former Smoker Not Available [facility] 10/12/2022 00:49:03 What Is Your Level Of Caffeine Consumption? None [id number] Information not available 10/12/2022 In The 14 Days Before Symptom Onset, Have You Had Close Contact With A Laboratory-confir med COVID-19 While That Case Was Ill? No [id number] Information not available 10/12/2022 In The 14 Days Before Symptom Onset, Have You Had Close Contact With A Person Who Is Under Investigation For COVID-19 While That Person Was Ill? No [id number] Information not available 10/12/2022 What Type Of Diet Are You Following? REGULAR [id number] Information not available 10/12/2022 Which Illicit Or Recreational Drugs Have You Used? Marijuania [id number] Information not available 10/12/2022 Do You Have An Electrostatic Air Filter? No [id number] Information not available 10/12/2022 When Did You Quit Smoking? 1-5yearssincel astcigarette [id number] Information not available 10/12/2022 Do You Have A Humidifier? No [id number] Information not available 10/12/2022 Where Do You Live? Condo [id number].[id number] Information not available 10/12/2022 Do You Have Moisture Problems In Your Home? No [id number] Information not available 10/12/2022 What Was The Date Of Your Most Recent Tobacco Screening? 02/13/2025 Information not available 02/13/2025 Do You Have Any Pets? No MIGRATION.[id number] Information not available 10/12/2022 Do You Use Your Seat Belt Or Car Seat Routinely? Yes Information not available 08/09/2023 Do You Have Smoke And Carbon Monoxide Detectors In Your Home? Yes [id number] Information not available 10/12/2022 Are You Passively Exposed To Smoke? No MIGRATION.[id number] Information not available 10/12/2022 How Much Tobacco Do You Smoke? No Information not available 02/13/2025 Do You Use Sunscreen Routinely? No [id number].[id number] Information not available 10/12/2022 Have You Recently Traveled Abroad? No [id number] Information not available 10/12/2022 Sex: Unknown Functional Status Question Answer Note LastModified by Organizat ion Details LastModified Time What is your level of alcohol consumption? Occasional [id number] Information not available 10/12/2022 Have you been exposed to chemicals or toxins? not that aware of Information not available 12/16/2024 What is your occupation? retired [id number].[id number] Information not available 10/12/2022 What is your exercise level? Moderate [id number] Information not available 10/12/2022 Mental Status None recorded. Family History Relationship Description Onset Age of this Age Resolved Age Notes LastModified by Organization Details LastModified Time Brother Hypertensive disorder [id number] Not available 10/12/2022 00:52:07 Brother Cerebrovascu lar accident [id number] Not available 10/12/2022 00:52:07 Mother Hypertensive disorder [id number] Not available 10/12/2022 00:52:07 Daughter History of thyroid disorder [id number] Not available 10/12/2022 00:52:07 Notes:REPORTS THAT HER MOM H AD EAR PROBLEMS Medical History Condition Response DIABETES, TYPE Y ALLERGIES/HAYFEVER Y COPD Y HIGH CHOLESTEROL / HYPERLIPIDEMIA Y HAVE YOU BEEN HOSPITALIZED OR SEEN IN [facility] IN THE PAST YEAR ? Y HYPERTENSION Y Gynecological HistoryNo gynecological history recorded. Obstetrics History GPAL:G 0 P 0 0 0 0 Immunizations Vaccine Type Date Status Note Provider Nam e and Address Organization Details Recorded Time COVID-19, mRNA, LNP-S, PF, 100 mcg/0.5mL dose or 50 mcg/0.25mL dose 12/22/2020 completed Not Available [facility] 01:07:03 COVID-19, mRNA, LNP-S, PF, 100 mcg/0.5mL dose or 50 mcg/0.25mL dose 11/27/2020 completed Not Available [facility] 01:07:03 Influenza, high-dose, trivalent, PF 06/01/2018 completed Not Available [facility] 2022 01:07:03 Past Encounters Encounter ID Performer Location Encounter Start Date Encounter Closed Date Diagnosis/Indication Diagnosis SNOMED-CT Code Diagnosis ICD10 Code Diagnosis Note [id number] Faith Lopez MD _BRAIN_Sean IGRATION_ DEFAULT_1 _1 , 10/15/2020 00:00:00 10/15/2020 18:44:35 [id number] MD JACKIE Bethea_HIRA [address] [address] 02/25/2021 00:00:00 02/25/2021 15:34:57 [id number] MD JACKIE Bethea_HIRA Teixeira [address] [address] 05/05/2021 00:00:00 05/05/2021 14:36:29 [id number] MD JACKIE Ospina_[facility] [place] [address] [place] [address] 06/18/2021 00:00:00 06/18/2021 17:30:22 [id number] Stephan Momin MD [facility] [address] [place] [address] 07/15/2021 00:00:00 07/15/2021 15:37:10 [id number] [facility] _ATHENA_M IGRATION_ DEFAULT_1 _1 , 11/05/2021 00:00:00 11/07/2021 20:30:54 [id number] [facility] _ATHENA_M IGRATION_ DEFAULT_1 _1 , 02/03/2022 00:00:00 02/03/2022 23:00:00 [id number] Stephan Momin MD [facility] [address] [place] [address] 08/03/2022 00:00:00 08/03/2022 16:18:13 [id number] Faith Lopez MD [facility] [place] [address] [place] [address] 11/29/2022 17:25:09 11/29/2022 18:02:12 Type 2 diabetes mellitus without complication 502891669 E11.9 a1c of 7%- continue on metformin ER to 1000 mg BID, glimepirid e to 4 mg BID, and trulicity 3 mg SQ once weekly. Will start on repaglinid e for postprandi al hyperglyce melo. patient encouraged to work on diet and exercise otherwise insulin will be next step in management . Recommende d she incorporat e natural insulin pharmacy manager s such as pears, apples, cinnamon, joan and sweet potatoes to help mobilize her endogenous insulin. Recommende d up to 150 minutes of moderate level activity/e xercise weekly. Dyslipidemia 955685420 E 78.5 Continue on statin therapy. Insomnia 182449663 G47.0 0 Trial on belsomra 5 mg at bedtime for insomnia. She has trialed on benadryl without success and doesn't feel melatonin works for her. Spent up to 26 minutes preparing to see the patient (eg, review of tests), obtaining and/or reviewing separately obtained history, performing a medically appropriat e examinatio n and evaluation , counseling and educating the patient, ordering medication s, tests, along with documentin g clinical informatio n in the electronic health record, independen tly interpreti ng results and communicat ing results to the patient. RTC in 4-5 months. Patient was provided a handwritte n lab order which contains our fax number. If she chooses to go outside of the [facility] system to obtain labwork she was advised to provide our fax number and my informatio n to the lab she will be obtaining labwork from in order to have her labs properly forwarded over for me to review so there is no loss of follow up due to use of outside network. She was also advised to contact our clinic informing us that she has completed her labwork so we are aware we will need to reach out to the appropriat e laboratory to request her results be forwarded to us so I might have the ability to review and make further medical decision making in her case. She voiced understand ing. [id number] Clifton wolfe MD [facility] General Surgery [address] [address] 04/27/2023 12:54:55 04/27/2023 15:37:45 Umbilical hernia 911904626 K42.9 [id number] Janet Hendricks MD [facility] General Surgery [address] [address] 08/02/2023 15:35:11 08/02/2023 16:07:53 Gastroesophageal reflux disease 604604828 K21.9 Screening for malignant neoplasm of colon 876951697 Z12.11 [id number] Kerwin Lomeli MD [facility] [address] [place] [address] 06/23/2023 08:58:04 06/23/2023 10:26:01 Pain of right knee joint 3584828139 70680 M25.368 [id number] Kerwin Lomeli MD [facility] [address] [place] [address] 07/31/2023 11:52:00 07/31/2023 12:38:41 Pain of right knee joint 4610874456 01387 M25.070 [id number] Stephan Momin MD [facility] [place] [address] [facility] [address] [place] [address] 08/09/2023 14:35:36 08/09/2023 15:31:31 Mild chronic obstructive pulmonary disease 966105881 J44.9 [id number] MD JACKIE Moore[facility] [place] [address] [place] [address] 08/17/2023 15:08:54 08/17/2023 15:57:45 Chronic sinusitis 17351667 J32.9 Eczema of external auditory canal 11277903 H60.784 [id number] Kemar Cruz DPM [facility] [place] [address] [facility] [address] [place] [address] 01/02/2024 17:25:02 01/04/2024 14:09:07 Diabetes mellitus 92382941 E11.9 continue diabetic control per PCP recommenda tionsrecom mend good shoe gear Dystrophia unguium 75076 009 L60.3 nails debrided without incident [id number] MD JACKIE Moore_[facility] [place] [address] [place] [address] 05/02/2024 15:44:03 05/02/2024 16:13:48 Chronic sinusitis 26100200 J32.9 [id number] MD JACKIE Gurrola_[facility] [address] [address] 07/15/2024 12:24:43 07/15/2024 13:15:40 Pain of right knee joint 7681281790 99150 M25.561 Osteoarthr itis of right knee joint 0902588326 48073 M17.11 [id number] MD JACKIE [facility] [place] [address] [place] [address] 07/25/2024 11:16:25 08/08/2024 10:39:31 Chronic left maxillary sinusitis 4135279276 [id number] J32.0 [id number] MD JACKIE Moore[facility] [place] [address] [place] [address] 08/28/2024 11:52:37 08/28/2024 12:33:42 Postoperative visit 991219838 Z48.89 08/16/2024 postoperat ton from a left maxillary antrostomy with navigation . Advised to begin blowing nose. Follow-up as needed. Eczema of external auditory canal 07419633 H60.549 she reports that she currently has mometasone that was previously prescribed by this office with 1 refill. Advised to apply to the external auditory canals daily with a Q-tip for symptom management . [id number] Janet Hendricks MD [facility] General Surgery [address] [place] [address] 10/09/2024 11:36:51 10/09/2024 12:10:10 Screening for malignant neoplasm of colon 818966618 Z12.11 Breath sme lls unpleasant 87282231 R19.6 [id number] Kerwin Lomeli MD [facility] [place] [address] [place] [address] 11/18/2024 11:44:44 11/18/2024 12:01:24 Pain of right knee joint 8359666759 49091 M25.549 [id number] Stephan Momin MD [facility] [address] [address] 12/16/2024 09:50:51 12/17/2024 15:50:37 Mild chronic obstructive pulmonary disease 216011401 J44.9 [id number] Stephan Momin MD [facility] [address] [address] 02/13/2025 14:05:11 02/17/2025 15:22:16 Mild chronic obstructive pulmonary disease 440377107 J44.9 Nodule of lung 932007214 R91.1 Goals Section Goal Description Progress Status Start Date LastModified by Organization Details LastModified Time Hemoglobin A1C Lowers or maintains hemoglobin A1C (HbA1c) as per care team recommendation (s) [TARGET: less than or equal to 7%] None active 2023 Silvio Marti RN Information not available 03/12/2024 01:28:26 Smoking Cessation Quits smoking None active 2023 Silvio Marti RN Information not available 03/12/2024 01:28:26 Healthy Weight Maintain a healthy body weight as recommended by your care team None active 2023 Silvio Marti RN Information not available 03/12/2024 01:28:26 Blood Pressure Maintains blood pressure goal as defined by care team None active 2023 Silvio Marti RN Information not available 03/12/2024 01:28:26 Exercise Regularly Follows a regular exercise regimen or instructed exercise plan as per care team recommendation (s) None active 2023 Silvio Marti RN Information not available 03/12/2024 01:28:26 Activities of Daily Living Performs activities of daily living independently or with minimal assistance None active 2023 Silvio Marti RN Information not available 03/12/2024 01:28:26 Recreation al Activities Participates in recreational activities None active 2023 Silvio Marti RN Information not available 03/12/2024 01:28:27 Medication Regimen Follows medication regimen as per care team recommendation (s) None active 2023 Silvio Marti RN Information not available 03/12/2024 01:28:27 Lipid Levels Maintains normal lipid levels as defined by care team None active 2023 Silvio Marti RN Information not available 03/12/2024 01:28:27 Follow-up Appointmen t(s) Attends referral and/or follow-up appointment(s) as per care team recommendation (s) None active 2023 Silvio Marti RN Information not available 03/12/2024 01:28:27 Weight Loss Decreases body weight as per care team recommendation (s) None active 2023 Silvio Marti RN Information not available 03/12/2024 01:28:27 Blood Glucose Maintains blood glucose within target range None active 2023 Silvio Marti RN Information not available 03/12/2024 01:28:27 Effective Coping Manages life events with effective coping methods None active 2023 Silvio Marti RN Information not available 03/12/2024 01:28:27 Diet Adherence Follows prescribed or recommended diet None active 2023 Silvio Marti RN Information not available 03/12/2024 01:28:27 Health Concerns Section Related Observation LastModified by Organization Detai ls LastModified Time None Recorded Concern Status LastModified by Organization Details LastModified Time Arthropathy of joint of hand Active Silvio Marti RN Not Available 03/12/2024 0 1:24:46 Dyslipidemia Active Silvio Marti RN Not Available 03/12/2024 01:25:42 Type 2 diabetes mellitus without complication Active Silvio Marti RN Not Available 03/12/2024 0 1:25:24 Mild chronic obstructive pulmonary disease Active Silvio Marti RN Not Available 03/12/2024 01:26:00 Advance Directives Directive None Recorded Payers Insurance Date Sequence Insurance Name Policy Number Policy Turner Covered Member ID Turner Member ID Guarantor Name 11/18/2024 2 [place] Carelene S Ortega [id number] Carelene S Ortega 01/11/2025 2 [place] MEDICARE REPLACEMENT PRIMARY) Carelene S Ortega [id number] Carelene S Ortega 01/22/2025 2 [place] Carelene S Ortega [id number] Carelene S Ortega 02/11/2025 1 [place] Carelene Ortega [id number] Carelene S Ortega 11/18/2024 2 [place]IC[place] REPLACEMENT PRIMARY) Carelene Ortega [id number] Carelene S Ortega Notes Date Note Type Note Provider Name and Address Organization Details Recorded Time 08/28/2024 text/html This patient pre sents to the office for a postoperative visit from a left maxillary antrostomy with navigation that was completed on 08/16/2024. she reports use of the saline rinses. she has not yet begun blowing her nose. She does report pruritus to her bilateral external auditory canals. She questioned whether or not she can use the ofloxacin eardrops that have been previously slowly prescribed for management. She denies any otalgia. DEEJAY Barba [address] [facility] [place] [address], [place], [address], [facility] [employer] [facility] 08/28/2024 12:33:07 10/09/2024 text/html PT WAS SEEN IN T HE OFFICE TODAY FOR COLON SCREENING . PT DENIES ABD PAIN /N/V/D/BLEEDING /WT LOSS.PT IS C/O HALITOSIS. SHE HAS DM-2 . LAST HBA1C WAS 7.3. PT DID NOT SCHEDULE HER PROCEDURE LAST YEAR . Janet Hendricks MD [address] [facility], [place] [address], [place], [phone], [facility] [employer] [facility] 10/09/2024 12:07:15 12/16/2024 text/html Primary care/Referring provider: Rommel Baptiste [facility] here to go over her COPD management.Initial development of cough: 2011Duration of cough: 14 yearsNature of cough: productive of clear sputumCondition of cough: stableTiming of cough: noneFrequency: less than once a dayLimits activities: yesAggravating factors: walking briskly, heatAlleviating factors: restingTreatment history:Albuterol HFA as needed since 2018, once a weekOther symptoms:Wheezing: noChest tightness: yesOrthopnea: noFrequent throat clearing or swallowing: yesPalpitations: noDysphagia: noHeartburn: noEdema: noModified [employer] [place] (mMRC) Dyspnea Scale - Grade 1Grade 0 I only get breathless with strenuous exercise .Grade 1 I get short of breath when hurrying on the level or walking up a slight hill .Grade 2 I walk slower than people of the same age on the level because of breathlessness or have to stop for breath when walking at my own pace on the level .Grade 3 I stop for breath after walking about 100 yards or after a few minutes on the level .Grade 4 I am too breathless to leave the house or I am breathless when dressing .Environmental exposures:Nicotine smoke: 2/ ppd [id number] = 19.2 pack yearsPaint: noDye: noDust mites: yesMold: noDamp basement: noWood burning stove: noAnimal dander: noCockroaches: noPollen: yesArsenic: noAsbestos: noBeryllium: noCadmium: noChromium: noCoal smoke: noDiesel fumes: noNickel: noSilica: noSoot: noEPWORTH SLEEPINESS SCALE (ESS)CHANCE OF DOZING SCORE0 = would never doze1 = slight chance of dozing2 = moderate chance of dozing3 = high chance of dozingSITUATION AND CHANCE OF DOZINGSitting and reading - 1Watching television - 1Sitting inactive in a public place (e.g. a theater or meeting) - 0As a passenger in a car for an hour without a break - 0Lying down to rest in the afternoon when circumstances permit - 2Sitting and talking to someone - 2Sitting quietly after lunch without alcohol - 2In a car, while stopped for a few minutes in the traffic - 0TOTAL [id number], patient has a slight chance of dozing. Stephan Momin MD [address] [place] [address], [phone], [facility] [employer] 12/16/2024 10:39:13 02/13/2025 text/html Primary care/Referring provider: Rommel Baptiste, MDPatient is here to go over her COPD and pulmonary nodule management.Initial development of cough: 2011Duration of cough: 14 yearsNature of cough: productive of clear sputumCondition of cough: stableTiming of cough: noneFrequency: less than once a dayLimits activities: yesAggravating factors: walking briskly, heatAlleviating factors: restingTreatment history:Albuterol HFA as needed since 2018, once a weekOther symptoms:Wheezing: noChest tightness: yesOrthopnea: noFrequent throat clearing or swallowing: yesPalpitations: noDysphagia: noHeartburn: noEdema: noModified [employer] [place] (mMRC) Dyspnea Scale - Grade 1Grade 0 I only get breathless with strenuous exercise .Grade 1 I get short of breath when hurrying on the level or walking up a slight hill .Grade 2 I walk slower than people of the same age on the level because of breathlessness or have to stop for breath when walking at my own pace on the level .Grade 3 I stop for breath after walking about 100 yards or after a few minutes on the level .Grade 4 I am too breathless to leave the house or I am breathless when dressing .Environmental exposures:Nicotine smoke: 09/18 ppd [id number] = 19.2 pack yearsPaint: noDye: noDust mites: yesMold: noDamp basement: noWood burning stove: noAnimal dander: noCockroaches: noPollen: yesArsenic: noAsbestos: noBeryllium: noCadmium: noChromium: noCoal smoke: noDiesel fumes: noNickel: noSilica: noSoot: noEPWORTH SLEEPINESS SCALE (ESS)CHANCE OF DOZING SCORE0 = would never doze1 = slight chance of dozing2 = moderate chance of dozing3 = high chance of dozingSITUATION AND CHANCE OF DOZINGSitting and reading - 1Watching television - 0Sitting inactive in a public place (e.g. a theater or meeting) - 0As a passenger in a car for an hour without a break - 0Lying down to rest in the afternoon when circumstances permit - 1Sitting and talking to someone - 1Sitting quietly after lunch without alcohol - 1In a car, while stopped for a few minutes in the traffic - 0TOTAL SCORE 4Subjectively, patient has a slight chance of dozing. Stephan Momin MD [address] [facility], [facility] [address], [place], [address], [place] [facility] [employer] 02/13/2025 14:40:59 OBGyn Episode No OBEpisode recorded.
--- OUTSIDE RECORDS SUMMARY | 2025-03-06 10:32 | XMS_ITS | Clinical Summary ---
Author Organization [facility] [address] [place] [phone] Care Team Providers Care Lead Care Manager Name Role Phone Rommel Sunshine MD Primary Care Provider Allergies Active Allergy Reactions Criticality Noted Date [...] Additional Information Patient not taking.Reported on 12/04/2024 [email or web address] Ultra Test strip 2 (two) times a [...] TG=72. Assessment & Plan (07/24/2024 12:57 PM CHIEF COMMERCIAL OFFICER): Chronic problem. On statin therapy, no changes. [...] eye exam (12/08/23 no DMR [facility] [place]). Will update MA/Cr. Does not mychart. Verified phone #/address to contact re: results. Discussed with Neisha Ortega: Strive for regular exercise (30min most days) [...] infection. Assessment & Plan (07/24/2024 12:58 PM CHIEF COMMERCIAL OFFICER): Chronic problem, not at goal with hypoglycemia. [...] issues. Assessment & Plan (09/20/2023 1:21 PM CHIEF COMMERCIAL OFFICER): Hba1c was Lab Results Component Value Date [...] daily Assessment & Plan (07/24/2024 12:57 PM CHIEF COMMERCIAL OFFICER): Chronic problem, Controlled on losartan, amlodipine, clonidine. No changes. Assessment & Plan (09/20/2023 1:22 PM CHIEF COMMERCIAL OFFICER): Chronic well-controlled Continue losartan Update GFR and microalbumin Encounters Date Type Department Care Team Description 02/17/2025 Orders Only [facility] Diabetes and Endocrinology [address] [place] [phone] Shane Givens MD 02/12/2025 Telephone [facility] Diabetes [facility] Endocrinology [address] [place] [phone] Chloe Juan, HEALTH NURSE Med Management 01/14/2025 Orders Only [facility] Diabetes and Endocrinology [address] [place] [phone] Shane Givens MD 01/07/2025 [facility] [address], [place] [address] Chloe Juan NP Med Management 12/06/2024 Results Follow-Up [facility] Diabetes and Endocrinology [address] [place] [phone] Chloe Juan NP Albumin Creatinine Ratio, Urine from Last 3 Months Surgical History Surgery Date Site/Laterality Comments HYSTERECTOMY HERNIA REPAIR Medical History Medical History Date Comments Diabetes (HCC) HTN (hypertension) Type 2 diabetes mellitus (HCC) Social History Tobacco Use Types Packs/Day Years Used Date Smoking Tobacco: Former Cigarettes Comments Unknown Sex and Gender Information Value Date Recorded Sex Assigned at Not on file Legal Sex Female 4:27 PM CDT Gender Identity Not on file Sexual Orientation Not on file Obstetrics History Last Filed Vital Signs Vital Sign Reading [...] 12/04/2024 11:35 AM CDT Plan of Treatment Health Maintenance Due Date Last Done Comments Breast Cancer Screening-Mammogram 1952 Colon Cancer Screening-Colonoscopy 1950 Depression Screening 1950 Hepatitis C Screening 1952 Osteoporosis Screening-Bone Density Scan 1950 eGFR 1952 Hepatitis B Screening 1970 Zoster Vaccine (1 of 2) 2002 Well Visit 65+ 2017 Covid-19 Vaccine (2023-2 5 season) 2024 09/21/2022, 09/09/2021, 12/22/2020, Additional history exists Influenza Vaccine (#1) 2025 , 06/22/2022, 05/28/2021, Additional history exists Lipid Panel 05/23/2025 05/23/2024, 10/09/2023 Hemoglobin A1C 06/05/2025 12/04/2024, 12/08/2023, 05/23/2024, Additional history exists Fall Risk Assessment 07/24/2025 07/24/2024 Albumin Creatinine Ratio, Urine 12/04/2025 , 10/09/2023 Foot Exam 12/04/2025 12/04/2024, 09/20/2023 Dilated Eye Exam 02/07/2027 02/07/2025, , 12/08/2023 DTaP/Tdap/Td Vaccine (2 - Td or Tdap) 11/28/2028 11/28/2018 Pneumococcal vaccine 65+ Completed 019, 09/08/2016, 08/16/2015, Additional history exists Procedures Procedure Name Priority Date/Time Associated Diagnosis [...] (02/07/2025 9:43 AM CDT) us Historical Provider MD HEALTH MAINTENANCE Final Result * DIABETES EYE EXAM (12/07/2024 8:53 AM CDT) us Historical Provider HEALTH MAINTENANCE Edited Result - Final * Albumin Creatinine [...] 8 PM CDT 12/04/2024 8:50 PM CDT Chloe Juan HEALTH NURSE LAB URINE ORDERABLES Sujey l Result [facility] [id number] [address] Department [place] [address] * (ABNORMAL) POCT hemoglobin A1c (12/04/2024 11:39 AM CDT) Hemoglobin A1C, POC 9.2 4.0 - 5.6 % Blood 12/04/2024 11:3 9 AM CDT us Chloe Juan HEALTH NURSE POINT OF CARE TEST ORDERA BLES Final [...] Recently Relevant to Health Maintenance Insurance MEDICARE [facility] Care Teams Lead Care Manager Relationship Specialty Start Date End Date Rommel Sunshine MD [address] [place] [id number] PCP - General Internal Medicine 06/13/23
== END 2025-03-06 10:28 | disposition home or self-care (01) ==
PROVIDERS: PCP Internal Medicine Infectious Disease; Visit Provider Internal Medicine Pulmonary Disease
DX: R91.1 Solitary pulmonary nodule (principal)
CPT/HCPCS: 78815; A9552